=== PATIENT | female | born 1940 | race Caucasian/White ===

== ENCOUNTER 2023-03-15 12:21 | Emergency (ER) | payer MEDICARE, BC, SELFPAY ==
--- NOTE | 2023-03-15 12:30 | ED.FEMALEGU ---
HPI - Female Genitourinary General Chief complaint: Urogenital-Female Stated complaint: uti symptoms Time Seen by Provider: 03/15/23 12:28 Source: patient Mode of arrival: ambulatory Limitations: no limitations History of Present Illness HPI Narrative: Andreina is an 82-year-old female patient presenting to the clinic today with complaints of urinary symptoms. She reports she has had urinary frequency and fatigue over the last day or so. Denies any fever or chills. Denies any flank pain or lower abdominal pain. Denies any vaginal discharge Related Data Home Medications Medication Instructions Recorded Confirmed benazepril 40 mg tablet 40 mg PO DAILY 03/11/22 03/15/23 cholecalciferol (vitamin D3) 25 25 mcg PO DAILY 03/11/22 03/15/23 mcg (1,000 unit) capsule flaxseed oil 1,000 mg capsule 1,000 mg PO DAILY 03/11/22 03/15/23 rosuvastatin 20 mg tablet 20 mg PO DAILY 03/11/22 03/15/23 albuterol sulfate 90 mcg/actuation 1 puff inhalation Q4H PRN 10/21/22 03/15/23 aerosol inhaler (Ventolin HFA) Shortness Of Breath Or Wheezing cxsjdxjobnt-vei-umcllptne-vitC 2 cap PO BID 10/21/22 03/15/23 capsule (Glucosamine Complex-MSM capsule) Allergies Allergy/AdvReac Type Severity Reaction Status Date / Time azithromycin [From Zithromax] AdvReac Mild GI upset Verified 03/15/23 12:44 cephalexin [From Keflex] AdvReac Mild yeast Verified 03/15/23 12:44 lorazepam AdvReac Mild visual Uncoded 03/15/23 12:44 disturbance Review of Systems Review of Systems: Pertinent positives per HPI. Patient denies any fever, chills, rash, headache, visual changes, dizziness, cough, runny nose, sore throat, shortness of breath, chest pain, palpitations, nausea, vomiting, diarrhea, constipation, abdominal pain. [facility] Past Medical History Medical History Anxiety COPD (chronic obstructive pulmonary disease) Follows Dr Sheriff, pulmonology JESI on CPAP Osteoporosis Surgical History Surgical History History of bunionectomy of both great toes 1994 2005 History of cataract surgery 2002, 2010 History of hammer toe correction L 2nd toe-2007 History of total hysterectomy with bilateral salpingo-oophorectomy (BSO) 2004 History of total left knee replacement 06/2017 Social History Social History Smoking status: Former smoker Tobacco type: cigarettes Second hand tobacco smoke exposure: No Smoking end date: 08/11/96 Alcohol intake: never Substance use: never Substance use type: does not use Lack of Transportation: No Lack of Food: Never True Current Housing: I Have Housing Concerned About Future Housing: No Difficulty Paying Gas/Electric Bills: No Difficulty Paying for Meds: No Currently Unemployed: No Education: High School Diploma/GED Difficulty w/ Childcare or Family Care: No Living arrangements: alone Occupation/Education: retired Gender identity (if verbalized by the patient): Female Sexual Orientation (if Verbalized by the Patient): Straight or Heterosexual Spiritual care concerns: No Comments At the time of my signature, I reviewed and agree with the nursing past medical, surgical, social, and family history. There is no relevant family history pertinent to the patient complaint. Exam Narrative: General: Well-developed, well nourished, in no apparent distress. Head: Normocephalic, atraumatic. Cardio: Regular rate and rhythm, s1 and s2 normal, no murmur appreciated. Resp: Clear to auscultation bilaterally, no rhonchi, rales, wheezing or rubs. Abdomen: Soft, pliable, bowel sounds present in all quadrants, non-tender to palpation, no organomegly, no CVAT tenderness. Course Course Emergency Course: Portions of this record may have been created with voice recognition software. Level of C
[2023-03-15 12:44] VITALS: BP 134/61; PULSE 52; RESP 18; TEMP 36.8; O2SAT 97
== END 2023-03-15 13:08 | disposition home or self-care (01) ==
PROVIDERS: Emergency Provider Nurse Practitioner Family; PCP Physician Assistant Medical
DX: N30.01 Acute cystitis with hematuria (principal); Z87.891 Personal history of nicotine dependence; J44.9 Chronic obstructive pulmonary disease, unspecified; G47.33 Obstructive sleep apnea (adult) (pediatric); M81.0 Age-related osteoporosis without current pathological fracture; Z90.710 Acquired absence of both cervix and uterus; Z96.652 Presence of left artificial knee joint
CPT/HCPCS: 81003; 87086; 87147; 87181; 87186; 99213; G0463

== ENCOUNTER 2023-04-07 09:32 | Outpatient (CLI) | payer MEDICARE, BC, SELFPAY ==
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
== END 2023-04-07 09:33 | disposition home or self-care (01) ==
PROVIDERS: PCP Physician Assistant Medical; Visit Provider Internal Medicine Gastroenterology
DX: R10.9 Unspecified abdominal pain (principal); R93.89 Abnormal findings on diagnostic imaging of other specified body structures
CPT/HCPCS: 74250

== ENCOUNTER 2023-12-08 10:09 | Outpatient (CLI) | payer MEDICARE, BC, SELFPAY ==
--- NOTE | 2023-12-08 14:39 | WPDSIXMINUTE ---
Six Minute Walk Procedure Procedure Performed Pulmonary Stress Test (6 min walk) Six Minute Walk Six Minute Walk: This is a 6 minute walk test. The test was performed and interpreted in accordance with the 2014 ERS/ATS task force guidelines. Findings: The patient's resting room air oxygen saturation measured by pulse oximetry was 95% and heart rate was 57 bpm. Patient ambulated for 305 meters and oxygen saturation remained 90 to 94%. Heart rate at the end of the study was 87 bpm. The patient did not qualify for supplemental oxygen at rest or with ambulation. There are no prior studies for comparison.
--- NOTE | 2023-12-08 14:40 | WPDPFTINT ---
PFT Procedure Performed PFT Procedure Performed Spirometry with Pre/Post Bronchodilator Plethysmography (Lung Vol) Diffusing Cap (DLCO) Flow Vol Loop PFT Interpretation This is a pulmonary function test with pre and post-bronchodilator spirometry, plethysmography and diffusing capacity. The test was performed and results interpreted in accordance with the 2019 and 2005 ATS/ERS Task Force guidelines respectively using the Global Lung Function Initiative-2012 reference equations. Patient demonstrated good effort and cooperation. Reproducibility criteria were met. The quality of the pre bronchodilator spirometry maneuver was Grade A and post bronchodilator spirometry maneuver was Grade A. Findings: Spirometry: There is decreased maximal expiratory airflow at all lung volumes with concave expiratory flow tracing. The contour the inspiratory flow tracing is normal. The pre bronchodilator FVC is 2.16 L, 83% predicted. The pre bronchodilator FEV1 is 1.00 L, 51% predicted. The pre bronchodilator FEV1: FVC ratio is 46%. The post bronchodilator FVC is 2.53 L, representing a 17% increase. The post bronchodilator FEV1 is 1.19 L, representing a 19% increase. The post bronchodilator FEV1: FVC ratio is 47%. Plethysmography: The total lung capacity is 4.78 L, 92% predicted. The functional residual capacity is 3.25 L, 108% predicted. The residual volume is 2.44 L, 99% predicted. Diffusing capacity: The diffusing capacity unadjusted for hemoglobin and carboxyhemoglobin is 8.0, 41% predicted. The diffusing capacity adjusted for alveolar volume is 2.23, 55% predicted. Impression: There is a moderately severe obstructive abnormality. There is significant improvement after inhaling a single dose of albuterol. The lung volumes are normal. The diffusing capacity unadjusted for hemoglobin and carboxyhemoglobin is moderately decreased and remains moderately decreased when adjusted for alveolar volume. There are no prior studies for comparison
== END 2023-12-08 10:10 | disposition home or self-care (01) ==
PROVIDERS: PCP Physician Assistant Medical; Visit Provider Internal Medicine Critical Care Medicine
DX: R06.09 Other forms of dyspnea (principal); R94.2 Abnormal results of pulmonary function studies
CPT/HCPCS: 94060; 94618; 94726; 94729

== ENCOUNTER 2023-12-24 12:47 | Outpatient (CLI) | payer MEDICARE, BC, SELFPAY ==
--- NOTE | ~2023-12-24 | MR_ITS ---
EXAMINATION: MR hip LT wo con DATE: 12/24/2023 14:04 INDICATION: Left hip pain TECHNIQUE: Magnetic resonance imaging (MRI) of the left hip was performed without intravenous contra st. Sequences included full-field axial PD-weighted FS FSE and T1-weighted FSE, coronal of the pelvis with PD-weighted FS FSE, T2-weighted FSE and T1-weighted FSE, small field of view of the left hip wi th axial PD-weighted FS FSE, sagittal PD-weighted FS FSE, coronal PD-weighted FS FSE and coronal T2 weighted FSE. Additional radial T1-weighted FGR oriented orthogonal to the acetabular rim were obtain ed for evaluation of the labrum. COMPARISON: None FINDINGS: Bones/labrum/cartilage: Alignment is normal. No fracture, avascular necrosis or pathologic marrow replacing process. Mild to moderate osteoarthritis at the left hip with superomedial predominant nonuniform joint space narrowi ng with partial thickness cartilage loss appears to involve up to 50% the cartilage thickness. There is deep chondral fissuring with some subarticular edema-like signal change at the superolateral aspec t of the left acetabulum. There is diffuse amorphous increased signal of the left acetabular labrum w ith degenerative tearing. Lumbar spondylosis, severe at L5-S1 and moderate in the more cephalad lumba r spine. Fluid: Symmetric physiologic amount of fluid within both hip joints. No other abnormal fluid collections. Soft tissues: Normal and symmetric muscle bulk and signal in the pelvis and visualized proximal thighs. The iliopso as, gluteal and proximal hamstring tendons are normal. The uterus is not identified and has likely be en surgically resected. There is mild diverticulosis along the sigmoid colon without adjacent from tr anali stranding to suggest diverticulitis. Limited evaluation of visceral organs of the pelvis is other corona unremarkable. No pathologically enlarged pelvic/inguinal lymphadenopathy. IMPRESSION: 1. Mild to moderate left hip osteoarthritis with diffuse degenerative tearing of the left acetabular labrum. Reviewed, dictated and finalized at location A. IMPRESSION: 1. Mild to moderate left hip osteoarthritis with diffuse degenerative tearing o f the left acetabular labrum.
== END 2023-12-24 12:48 ==
LOC: GOSHIMG 12:49
PROVIDERS: PCP Physician Assistant Medical; Visit Provider Orthopaedic Surgery
DX: M16.12 Unilateral primary osteoarthritis, left hip (principal)
CPT/HCPCS: 73721

== ENCOUNTER 2024-09-26 12:14 | Emergency (ER) | payer MEDICARE, BC, SELFPAY ==
--- OUTSIDE RECORDS SUMMARY | 2024-09-26 12:18 | XMS_ITS | Encounter Summary ---
Author Organization [facility] Address [address] [place] [address] Care Team Providers Care Block Trader Name Role Phone Duke Brown MD Primary Care Provider [phone] Encounter Details Date Type Department Care Team (Late st Contact Info) Description 07/18/2006 Outpatient Historical [facility] Support Serv. (Adt Cardiology-[facility]) [address] 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
--- OUTSIDE RECORDS SUMMARY | 2024-09-26 12:18 | XMS_ITS | Referral Summary ---
Author Organization [facility] Address [address] [place] [address] Care Team Providers Care Prep Room Supervisor Name Role Phone [facility] - Primar y Care Provider Source Comments [facility],non-owned Affiliates and Associated Physician Practices is amultiple site organization consisting of ambulatory clinics and hospital sitesin [place], [place], [place] and [place]. This disclosure is being madepursuant to the Care Everywhere program and may not contain all information available regarding this patient. Last updated 18.[facility] Encounters Date Type Department Care Team Description 07/16/2024 Travel 07/16/2024 11:30 AM TESTS SUPERINTENDENT - 07/16/2024 11:59 PM TESTS SUPERINTENDENT Hospital Encounter [facility] [address] [place] [id number] [address] Pickard Discharge Disposition: Home or Self Care from Last 3 Months Social History Tobacco Use Types Packs/Day Years Used Date Smoking Tobacco: Never Assessed Sex and Gender Information Value Date Recorded Sex Assigned at Not on file Gender Identity Not on file Sexual Orientation Not on file Plan of Treatment Not on file Procedures Procedure Name Priority Date/Time Associated Diagnosis Comments MAMMO BILAT SCREENING W JULIET Routine 07/16/2024 11:43 AM TESTS SUPERINTENDENT Encounter for screening mammogram for malignant neoplasm of breast from Last 3 Months Results * Mammo Bilat Screening W Juliet (07/16/2024 11:43 AM TESTS SUPERINTENDENT) Anatomical Region Laterality Modality Breast Bilateral Mammography 07/16/2024 11:5 0 AM TESTS SUPERINTENDENT Impressions 07/16/2024 11:53 AM TESTS SUPERINTENDENT IMPRESSION: No mammographic evidence of malignancy. RECOMMENDATION: Screening mammography in one year, pending no interval breast concerns. Patient will receive the examination results by lay letter. OVERALL ASSESSMENT: BI-RADS CATEGORY 1: NEGATIVE. > Interpreting Provider: Yudi Post MD, FACR on 07/16/2024 11:53 AM Narrative 07/16/2024 11:53 AM TESTS SUPERINTENDENT EXAMINATIONS: BILATERAL DIGITAL SCREENING MAMMOGRAM AND BILATERAL BREAST TOMOSYNTHESIS LOCATION: [facility] EXAM DATE: 07/16/2024 HISTORY: Screening. No family history of breast cancer. RISK ASSESSMENT CALCULATION: Patient completed a breast cancer risk assessment during her appointment 07/16/2024. Based upon the information she provided and her mammographic breast density, her lifetime risk of developing breast cancer is 4 % (Average Risk <15%; Intermediate / Moderate Risk 15-19; High Risk > 20%). Risk assessment based upon the BRCAPRO model. COMPARISON: Comparison is made to prior mammograms back to 2014. TECHNIQUE: Tomosynthesis (3D) and reconstructed synthetic 2-D images acquired and reviewed in the bilateral craniocaudal and mediolateral oblique projections. A total of 4 images obtained. Mole marker placed on the left breast. Transpara AI was utilized in the interpretation. BREAST PARENCHYMAL COMPOSITION: Category A: The breasts are almost entirely fatty. FINDINGS: There are no suspicious findings or evidence of malignancy on mammography. There is no significant change from the prior. Provider Unknown MAMMO ORDERABLES from Last 3 Months Care Teams Prep Room Supervisor Relationship Specialty Start Date End Date [facility] [address] [place] [address] PCP - General 07/16/24
--- OUTSIDE RECORDS SUMMARY | 2024-09-26 12:18 | XMS_ITS | Encounter Summary ---
Author Organization [facility] Address [address] [place] [address] Care Team Providers Care Supervisor Fruit Grading Name Role Phone ShamarDuke curran Primary Care Provider [facility] - Primar y Care Provider Encounter Details Date Type Department Care Team (Late st Contact Info) Description 05/20/2023 Lab Requisition [facility] - DermPath Lab [address] [place] [address] Corbin Delgado MD [address] [address] Social History Tobacco Use Types Packs/Day Years Used Date Smoking Tobacco: Never Assessed Sex and Gender Information Value Date Recorded Sex Assigned at Not on file Gender Identity Not on file Sexual Orientation Not on file documented as of this encounter Plan of Treatment Not on file documented as of this encounter Procedures Procedure Name Priority Date/Time Associated Diagnosis Comments DERMATOPATHOLOGY Routine 05/19/2023 12:0 0 AM CDT documented in this encounter Results * DERMATOPATHOLOGY (05/19/2023 12:00 AM CDT) Case Report Dermatopathology Report Case: [id number] Authorizing Provider: Corbin Delgado MD Collected: 05/19/2023 12:00 AM Ordering Location: [facility] DermPath Lab Received: 05/20/2023 08:38 AM Pathologist: Janice Sheets MD Specimen: Skin, right lower leg 5:03 PM CDT DERMATOPATHOLOGY LABORATORY Final Diagnosis Specimen A. SKIN, right lower leg: VERRUCA VULGARIS, SUPERFICIAL PORTIONS OF (B07.8) 5:03 PM T DERMATOPATHOLOGY LABORATORY Clinical History SCCA vs ISK Path# [id number] 5:03 PM CDT DERMATOPATHOLOGY LABORATORY Gross Description Specimen A: Received is one formalin filled container labeled with the patient's name and designated right lower leg. The specimen consists of a shave biopsy measuring 11x9x3 mm. Jar 0. 5:03 PM T DERMATOPATHOLOGY LABORATORY Microscopic Description Specimen A. SKIN, right lower leg: Sections show papillomatosis and hypergranulosis with overlying focal parakeratosis. The base of the lesion is not visualized. 5:03 PM T DERMATOPATHOLOGY LABORATORY Disclaimer An external and internal positive and negative controls are appropriate for the histochemical, immunohistochemical and immunofluorescence stain(s) in this case (if any), except where stated explicitly. The performance characteristics of the stain(s) cited in this report were developed and its performance characteristic determined by the Dermatopathology Laboratory at [facility], directed by Dr. Starla Sheets. These tests need not be, and therefore are not, approved by the [place] Food and Drug Administration. The tests are used for clinical purposes. Billing Codes Specimen Charges Stain Charges 81830 1 5:03 PM CDT DERMATOPATHOLOGY LABORATORY Embedded Images 5:03 PM CDT DERMATOPATHOLOGY LABORATORY Pathology/Cytolog y TISSUE SPECIMEN FROM SKIN / Unknown 05/19/2023 05/20/2023 8:38 AM CDT Corbin Delgado MD LAB - PATHOLOGY/CYTO LOGY ORDERABLES DERMATOPATHOLOGY LABORATORY [facility] - Department of Dermatology [address] [phone] documented in this encounter Visit Diagnoses Not on filedocumented in this encounter Care Teams Supervisor Fruit Grading Relationship Specialty Start Date End Date Duke Pickard Update Information PCP - General 12/10/17 07/15/24 [facility] [place] [address] [place] [address] PCP - General 07/16/24 documented as of this encounter
--- OUTSIDE RECORDS SUMMARY | 2024-09-26 12:18 | XMS_ITS | Encounter Summary ---
Author Organization [facility] Address [facility] [place] [address] Care Team Providers Care Steam Trap Worker Name Role Phone Sarah Lozano PA-C Primary Care Provider [phone] Reason for Referral * Surgical (Routine) - Closed Specialty Diagnoses / Procedures Referred By Angelica carter Referred To Contact Procedures Case request operating room: INJECTION EPIDURAL LUMBAR INTERLAMINAR L4-5 Marie Booth APNP Phone: tel: fax: Referral ID Status Reason Start Date Expiration Date Visits Re quested Visits Authorized [id number] Closed 05/15/2022 05/15/2023 1 1 Encounter Details Date Type Department Care Team (Late st Contact Info) Description 05/15/2022 Prep for Procedure [facility] [place] [address] [phone] Marie Booth APNP [address] [place] [phone] Social History Tobacco Use Types Packs/Day Years Used Date Smoking Tobacco: Former Cigarettes 1 30 1 09/20/1968 - 07/20/1999 Smokeless Tobacco: Never Alcohol Use Standard Drinks/Week Comments No 0 (1 standard drink = 0.6 oz pur e alcohol) AUDIT-C Answer Date Recorded Frequency of Alcohol Consumption Never 07/20/2019 Average Number of Drinks Not on file 019 Frequency of Binge Drinking Not on file 07/11 PHQ-2 Answer Date Recorded PHQ-2 Score - If the patient scores above 3, please move on to questions 3-9 0 03/19/2021 Comments No Sex and Gender Information Value Date Recorded Sex Assigned at Female 10/11/2019 10:42 AM INSTRUCTOR BALLROOM DANCING Legal Sex Female 8:12 PM CDT Gender Identity Female 10/11/2019 10:42 AM INSTRUCTOR BALLROOM DANCING Sexual Orientation Straight 10/11/2019 10 :42 AM INSTRUCTOR BALLROOM DANCING 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 No / Unsure 05/15/2022 1:42 PM CDT documented as of this encounter Plan of Treatment Upcoming Encounters Date Type Department Care Team (Late st Contact Info) Description 12/20/2024 10:00 AM CDT Appointment [facility] [address] [place], [place] [phone] Sarah Lozano PA-C [address] [place] [phone] Scheduled Orders Name Type Priority Associated Diagnoses Orde r Schedule Case request operating room: INJECTION EPIDURAL LUMBAR INTERLAMINAR L4-5 Case Request Routine Once for 1 Occurrences starting 05/15/2022 until 05/15/2022 documented as of this encounter Visit Diagnoses Not on filedocumented in this encounter Additional Health Concerns Assessment Noted Time PHQ-9 Depression Total Score: 0 03/19/20 21 3:46 PM CDT documented as of this encounter Care Teams Steam Trap Worker Relationship Specialty Start Date End Date Sarah Lozano PA-C [address] [place] [address] [address] [place] [phone] PCP - General PHYSICIAN OLDER WORKER SPECIALIST 03/25/22 documented as of this encounter
--- OUTSIDE RECORDS SUMMARY | 2024-09-26 12:18 | XMS_ITS | Encounter Summary ---
Author Organization [facility] Address [address] [place] [address] Care Team Providers Care Coat Tailor Name Role Phone Sarah Lozano PA-C Primary Care Provider [phone] Reason for Referral * Imaging (Routine) - Closed Specialty Diagnoses / Procedures Referred By Contcheryl t Referred To Contact RADIOLOGY Diagnoses Spinal stenosis of lumbar region with neurogenic claudication Procedures MRI LUMB SPINE WO CON Blake Antonio MD [facility] [address] [place] [address] Phone: tel: fax: Referral ID Status Reason Start Date Expiration Date Visits Re quested Visits Authorized [id number] Closed 04/16/2024 05/17/2025 1 1 Encounter Details Date Type Department Care Team (Late st Contact Info) Description 04/16/2024 Telephone [facility] [place] [address] [id number] Blake Antonio MD [facility] [address] [place] [id number] Social History Tobacco Use Types Packs/Day Years Used Date Smoking Tobacco: Former Cigarettes 1 30 1 09/20/1968 - 07/20/1999 Smokeless Tobacco: Never Alcohol Use Standard Drinks/Week Comments No 0 (1 standard drink = 0.6 oz pur e alcohol) Humiliation, Afraid, Rape, and Kick questionnair e Answer Date Recorded Within the last year, have y ou been afraid of your partner or ex-partner? No 12/30/2022 Within the last year, have y ou been humiliated or emotionally abused in other ways by your partner or ex-partner? No Within the last year, have y ou been kicked, hit, slapped, or otherwise physically hurt by your partner or ex-partner? No 12/30/2022 Within the last year, have y ou been raped or forced to have any kind of sexual activity by your partner or ex-partner? No 12/30/2022 AUDIT-C Answer Date Recorded Frequency of Alcohol Consumption Never 07/20/2019 Average Number of Drinks Not on file 019 Frequency of Binge Drinking Not on file 07/11 Overall Financial Resource Strain (CARDIA) Answe r Date Recorded How hard is it for you to pa y for the very basics like food, housing, medical care, and heating? Not hard at all 12/30/2022 PHQ-2 Answer Date Recorded Patient Health Questionnaire-2 Score 0 11/14/2023 Hunger Vital Sign Answer Date Recorded Within the past 12 months, y ou worried that your food would run out before you got the money to buy more. Never true 12/31/19 23 Within the past 12 months, t he food you bought just didn't last and you didn't have money to get more. Never true 12/30/2022 PRAPARE - Transportation Answer Date Re corded In the past 12 months, has l ack of transportation kept you from medical appointments or from getting medications? No 12/10 In the past 12 months, has l ack of transportation kept you from meetings, work, or from getting things needed for daily living? No 12/30/2022 Housing Stability Vital Sign Answer Fede e Recorded In the last 12 months, was t here a time when you were not able to pay the mortgage or rent on time? No 12/30/2022 In the last 12 months, how many places have you lived? 1 12/30/2022 In the last 12 months, was t here a time when you did not have a steady place to sleep or slept in a care home (including now)? 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 Answer Date of Assessment Author Status No 12/30/2022 7:14 PM CDT Jane Son, RN Active * Do you have serious difficulty walking or climbing stairs? Answer Date of Assessment Author Status No 12/30/2022 7:14 PM CDT Jane Son, RN Active * Do you have difficulty dressing or bathing? Answer Date of Assessment Author Status No 12/30/2022 7:14 PM CDT Jane Son, RN Active * Because of a physical, mental, or emotional condition, do you have difficulty doing errands alone such as visiting a doctor's office or shopping? Answer Date of Assessment Author Status No 12/30/2022 7:14 PM COCOT Jane Son, RN Active documented as of this encounter Mental Status * Because of a physical, mental, or emotional condition, do you have serious difficulty concentrating, remembering, or making decisions? Answer Entry Date Author Status No 12/30/2022 7:14 PM CDT Jane Son, RN Active documented in this encounter Plan of Treatment Upcoming Encounters Date Type Department Care Team (Late st Contact Info) Description 12/20/2024 10:00 AM CDT Appointment [facility] [address] [place] [address] Sarah Lozano PA-C [address] [place] [address] [address] [place] [address] documented as of this encounter Results * MRI LUMB SPINE WO CON (05/04/2024 8:31 AM CDT) Anatomical Region Laterality Modality Spine Magnetic Resonan ce 05/04/2024 10:2 5 AM CDT Impressions 05/04/2024 10:50 AM CDT IMPRESSION: Moderate to marked multilevel lumbar spondylosis greatest at L3-4 and L4-5, as described above. Ordered By: BLAKE ANTONIO Interpreted By: Grady Gallo MD, 05/04/2024 10:25 AM Narrative 05/04/2024 10:50 AM CDT [facility] [address] [place] [address] Examination: MRI LUMB SPINE WO CON, 05/04/2024 7:53 AM. Technique: Multiplanar multisequence magnetic resonance images of the lumbar spine were obtained without intravenous contrast. Clinical history: Spinal stenosis, lumbar region with neurogenic claudication Comparison: MRI lumbar spine 10/25/2020 Findings: There are 5 nonrib-bearing lumbar-type vertebral bodies. There is 0.7 cm of anterolisthesis of L4 on L5. There is 0.4 cm of retrolisthesis of L5 on S1. The lumbar vertebral bodies and facets are well aligned otherwise. There is intervertebral disc height loss at L4-5 and L5-S1 with endplate degenerative change at these levels. The conus medullaris terminates at L1-2, normal. There is a normal distribution of the cauda equina within the thecal sac. No abnormal prevertebral or paraspinal soft tissue swelling. L1-2: Disc bulge impressing the ventral thecal sac. Mild to moderate spinal canal stenosis. Moderate facet hypertrophy. Mild bilateral neural foraminal stenosis. L2-3: Disc bulge impressing the ventral thecal sac. Mild to moderate spinal canal stenosis. Moderate facet hypertrophy. Small bilateral facet joint effusions. Mild bilateral neural foraminal stenosis. L3-4: Disc bulge impressing the ventral thecal sac. Severe spinal canal stenosis. Moderate to marked facet hypertrophy. Small to medium bilateral facet joint effusions. Moderate right neural foraminal stenosis. Small to medium left neural foraminal stenosis L4-5: Disc bulge impressing the ventral thecal sac. Severe spinal canal stenosis. Marked facet hypertrophy. Moderate bilateral neural foraminal stenosis. L5-S1: Disc bulge impressing the ventral thecal sac. Moderate spinal canal stenosis. Moderate to marked facet hypertrophy. Moderate to severe bilateral neural foraminal stenosis. Procedure Note Grady Gallo MD - 05/04/2024 [facility] [address] [place] [address] Examination: MRI LUMB SPINE WO CON, 05/04/2024 7:53 AM. Technique: Multiplanar multisequence magnetic resonance images of thelumbar spine were obtained without intravenous contrast. Clinical history: Spinal stenosis, lumbar region with neurogenicclaudication Comparison: MRI lumbar spine 10/25/2020 Findings: There are 5 nonrib-bearing lumbar-type vertebral bodies. There is 0.7 cmof anterolisthesis of L4 on L5. There is 0.4 cm of retrolisthesis of L5 onS1. The lumbar vertebral bodies and facets are well aligned otherwise.There is intervertebral disc height loss at L4-5 and L5-S1 with endplatedegenerative change at these levels. The conus medullaris terminates atL1-2, normal. There is a normal distribution of the cauda equina withinthe thecal sac. No abnormal prevertebral or paraspinal soft tissueswelling. L1-2: Disc bulge impressing the ventral thecal sac. Mild to moderatespinal canal stenosis. Moderate facet hypertrophy. Mild bilateral neuralforaminal stenosis. L2-3: Disc bulge impressing the ventral thecal sac. Mild to moderatespinal canal stenosis. Moderate facet hypertrophy. Small bilateral facetjoint effusions. Mild bilateral neural foraminal stenosis. L3-4: Disc bulge impressing the ventral thecal sac. Severe spinal canalstenosis. Moderate to marked facet hypertrophy. Small to medium bilateralfacet joint effusions. Moderate right neural foraminal stenosis. Small tomedium left neural foraminal stenosis L4-5: Disc bulge impressing the ventral thecal sac. Severe spinal canalstenosis. Marked facet hypertrophy. Moderate bilateral neural foraminalstenosis. L5-S1: Disc bulge impressing the ventral thecal sac. Moderate spinal canalstenosis. Moderate to marked facet hypertrophy. Moderate to severebilateral neural foraminal stenosis. IMPRESSION: Moderate to marked multilevel lumbar spondylosis greatest at L3-4 andL4-5, as described above. Ordered By: BLAKE ANTONIO Interpreted By: Grady Gallo MD, 05/04/2024 10:25 AM Blake Antonio MD MRI Final Result documented in this encounter Visit Diagnoses Diagnosis Spinal stenosis of lumbar region with neurogenic claudication- Primary Spinal stenosis, lumbar region, with neurogenic claudication Spinal stenosis of lumbar region with neurogenic claudication Spinal stenosis, lumbar region, with neurogenic claudication documented in this encounter Additional Health Concerns Assessment Noted Time PHQ-9 Depression Total Score: 0 03/19/20 21 3:46 PM CDT documented as of this encounter Care Teams Coat Tailor Relationship Specialty Start Date End Date Sarah Lozano PA-C [address] [place], [place] [id number] [place] [address] PCP - General PHYSICIAN DIRECT SUPPORT PROFESSIONAL 03/25/22 documented as of this encounter
--- OUTSIDE RECORDS SUMMARY | 2024-09-26 12:18 | XMS_ITS | Clinical Summary ---
Author Organization [facility] Address [address] [facility] [place] [address] Care Team Providers Care Tower Erector Name Role Phone [facility] Care Provider Source Comments [facility],non-owned Affiliates and Associated Physician Practices is amultiple site organization consisting of ambulatory clinics and hospital sitesin [place], [place], [place] and [place]. This disclosure is being madepursuant to the Care Everywhere program and may not contain all information available regarding this patient. Last updated 18.[facility] Encounters Date Type Department Care Team Description 07/16/2024 11:30 AM CUT ROLL MACHINE OFFBEARER - 07/16/2024 11:59 PM CUT ROLL MACHINE OFFBEARER Hospital Encounter [facility] [address] [place], [place] [id number] Duke Pickard Discharge Disposition: Home or Self Care 07/16/2024 Travel from Last 3 Months Social History Tobacco Use Types Packs/Day Years Used Date Smoking Tobacco: Never Assessed Sex and Gender Information Value Date Recorded Sex Assigned at Not on file Gender Identity Not on file Sexual Orientation Not on file Plan of Treatment Health Maintenance Due Date Last Done Comments MEDICARE AWV 12 MONTHS 1942 DTAP/TDAP/TD VACCINES (1 - Tdap) 1961 PNEUMOCOCCAL VACCINE 50+ (1 of 1 - PCV) 1992 ZOSTER VACCINE (1 of 2) 1992 Respiratory Syncytial Virus (RSV) Vaccine Pt: or over 60 yrs (1 - 1-dose 75+ series) 2017 COVID-19 VACCINE (2 - 2023-2 5 season) 2024 01/18/2022 INFLUENZA VACCINE (#1) 2024 DEPRESSION SCREENING 08/11/2024 BONE DENSITY TESTING Completed 12/09/2022, 12/22/2020 HEPATITIS B VACCINE Aged Out No longe r eligible based on patient's age to complete this topic HIB VACCINE Aged Out No longer eligi ble based on patient's age to complete this topic HPV VACCINE Aged Out No longer eligi ble based on patient's age to complete this topic MENINGOCOCCAL (Group B) VACCINE Aged Out No longer eligible b ased on patient's age to complete this topic MENINGOCOCCAL VACCINE Aged Out No zoe lesia eligible based on patient's age to complete this topic Procedures Procedure Name Priority Date/Time Associated Diagnosis Comments MAMMO BILAT SCREENING W JULIET Routine 07/16/2024 11:43 AM CUT ROLL MACHINE OFFBEARER Encounter for screening mammogram for malignant neoplasm of breast from Last 3 Months Results * Mammo Bilat Screening W Juliet (07/16/2024 11:43 AM CUT ROLL MACHINE OFFBEARER) Anatomical Region Laterality Modality Breast Bilateral Mammography 07/16/2024 11:5 0 AM CUT ROLL MACHINE OFFBEARER Impressions 07/16/2024 11:53 AM CUT ROLL MACHINE OFFBEARER IMPRESSION: No mammographic evidence of malignancy. RECOMMENDATION: Screening mammography in one year, pending no interval breast concerns. Patient will receive the examination results by lay letter. OVERALL ASSESSMENT: BI-RADS CATEGORY 1: NEGATIVE. > Interpreting Provider: Yudi Post MD, FACR on 07/16/2024 11:53 AM Narrative 07/16/2024 11:53 AM CUT ROLL MACHINE OFFBEARER EXAMINATIONS: BILATERAL DIGITAL SCREENING MAMMOGRAM AND BILATERAL BREAST TOMOSYNTHESIS LOCATION: [facility] EXAM DATE: 07/16/2024 HISTORY: Screening. No family [...] ORDERABLES from Last 3 Months Care Teams Tower Erector Relationship Specialty Start Date End Date [facility] [address] [place] [address] PCP - General 07/16/24
--- OUTSIDE RECORDS SUMMARY | 2024-09-26 12:18 | XMS_ITS | Encounter Summary ---
Author Organization [facility] Address [address] [place] [address] Care Team Providers Care Sales Record Clerk Name Role Phone Duke Brown MD Primary Care Provider [phone] Encounter Details Date Type Department Care Team (Late st Contact Info) Description 03/27/2007 Outpatient Historical [facility] MRI DEPT Monik Mann MD NO ADDRESS ON FILE Abnormal Weight Gain (Primary Dx) Social History Tobacco Use Types Packs/Day Years Used Date Smoking Tobacco: Never Assessed Comments Unknown Sex and Gender Information Value Date Recorded Sex Assigned at Not on file Legal Sex Female 5:02 AM REHABILITATION COUNSELLOR Gender Identity Not on file Sexual Orientation Not on file documented as of this encounter Plan of Treatment Not on file documented as of this encounter Procedures Procedure Name Priority Date/Time Associated Diagnosis Comments POC CREATININE Routine 03/27/2007 9:26 AM CDT documented in this encounter Results * POC CREATININE (03/27/2007 9:26 AM CDT) CREATININE POC 0.7 0.6 - 1.3 mg/dL INTERFACE SYSTEM 03/27/2007 9:26 AM CDT us Monik Mann MD POINT OF CARE TESTING Edited INTERFACE SYSTEM Refer to clinic/hospital department documented in this encounter Visit Diagnoses Diagnosis Abnormal weight gain- Primary documented in this encounter Care Teams Sales Record Clerk Relationship Specialty Start Date End Date Duke Brown MD [address] [facility] [address] [place] [address] PCP - General 07/30/06 documented as of this encounter
--- OUTSIDE RECORDS SUMMARY | 2024-09-26 12:18 | XMS_ITS | Clinical Summary ---
Author Organization [facility] Address [address] [place] [address] Phone Care Team Providers Care Manager Transport Name Role Phone Duke Brown MD Primary Care Provider [phone] Allergies No known active allergies Medications glucosamine-cho ndroitin (ARTHX DS) 500-400 mg Capsule Take 1 Capsule by mouth. Active benazepriL (LOTENSIN) 20 mg tablet Take 40 mg by mouth daily. Active celecoxib (CeleBREX) 200 mg capsule Take 200 mg by mouth daily. Active [id number]-[id number] -fish oil 1,000 mg Capsule Take by mouth daily. Active flaxseed oil-omega 3,6,9 1,300 mg-845 mg -117 mg-117 mg Capsule Take by mouth. Active hydroCHLOROthia zide (HYDRODIURIL) 12.5 mg tablet Take 12.5 mg by mouth daily. Active METOPROLOL SUCCINATE ORAL Take 50 mg by mouth daily. Active cholecalciferol , vitamin D3, (VITAMIN D3 ORAL) Take 100 mcg by mouth daily. Active rosuvastatin (CRESTOR) 20 mg tablet Take 20 mg by mouth daily. Active traMADoL (ULTRAM) 50 mg tablet Take by mouth. 10/27/2020 Active Active Problems No known active problems Family History Medical History Relation Name Comments Stroke Maternal Grandmother Relation Name Status Comments Maternal Grandmother Social History Tobacco Use Types Packs/Day Years Used Date Smoking Tobacco: Former Cigarettes Q uit: 1995 Smokeless Tobacco: Never Alcohol Use Standard Drinks/Week Comments Never 0 (1 standard drink = 0.6 oz pur e alcohol) Comments No Sex and Gender Information Value Date Recorded Sex Assigned at Not on file Legal Sex Female 5:02 AM SPORTS THERAPIST Gender Identity Not on file Sexual Orientation Not on file Last Filed Vital Signs Vital Sign Reading Time Taken Comments Blood Pressure 162/67 03/10/2023 11:10 AM CDT Pulse 53 03/10/2023 11:10 AM CDT Temperature 37 C (98.6 F) 03/10/2023 11:10 AM CDT Respiratory Rate 18 03/10/2023 11:10 AM CDT Oxygen Saturation 93% 01/28/2023 8:48 AM CDT Inhaled Oxygen Concentration - - Weight 77.6 kg (171 lb) 01/28/2023 8:48 AM CDT Height 162.6 cm (5' 4 ) 01/28/2023 8:48 AM CDT Body Mass Index 29.35 01/28/2023 8:48 AM CDT Plan of Treatment Health Maintenance Due Date Last Done Comments PNEUMOCOCCAL VACCINE 65+ YEA RS (1 of 2 - PCV) 1961 RSV VACCINE (60+ or ) (1 - 1-dose 75+ series) 2017 INFLUENZA VACCINE (#1) 2024 05/14/2022 COVID-19 Vaccine (2 - 2023-2 5 season) 2024 01/18/2022 DTAP/TDAP/TD VACCINES (2 - T d or Tdap) 01/23/2027 01/23/2017 ZOSTER VACCINE Completed 08/20/2019, 06/21/2019 OSTEOPOROSIS SCREENING Completed 3, 12/22/2020, 12/22/2020, Additional history exists Procedures Procedure Name Priority Date/Time Associated Diagnosis Comments XR DEXA BONE DENSITY AXIAL 1 OR MORE SITES Routine 12/09/2022 10:38 AM CDT Age-related osteoporosis without current pathological fracture from Last 3 Months or Most Recently Relevant to Health Maintenance Results * (ABNORMAL) XR DEXA BONE DENSITY AXIAL 1 OR MORE SITES (12/09/2022 10:38 AM CDT) T-SCORE SPINE -1.50(A) -1.0 - 1.0 INTER FACE SYSTEM T-SCORE FEMUR NECK -1.90(A) -1.0 - 1.0 INTERFACE SYSTEM Anatomical Region Laterality Modality Computed Radiogr aphy 12/09/2022 10:3 9 AM CDT Impressions 12/09/2022 11:11 AM CDT FINDINGS/IMPRESSION: Osteopenia with a lowest T score of -1.9. Fracture risk is moderate. FRAX: 10 year probability of major osteoporotic fracture is 15.0 %. 10 year probability of hip fracture is 4.1 %. Please refer to the full report available in [facility] under the PACS Images tab. If a faxed copy is needed, please call [phone]. DICTATION LOCATION: [facility] Narrative 12/09/2022 11:11 AM CDT SUMMARY DEXA REPORT DATE: 12/09/2022 10:38 AM INDICATION: Postmenopausal Procedure Note David Carter MD - 12/09/2022 SUMMARY DEXA REPORT DATE: 12/09/2022 10:38 AM INDICATION: Postmenopausal FINDINGS/IMPRESSION: Osteopenia with a lowest T score of -1.9. Fracture risk is moderate. FRAX: 10 year probability of major osteoporotic fracture is 15.0 %. 10 year probability of hip fracture is 4.1 %. Please refer to the full report available in [facility] under the PACS Images tab. If a faxed copy is needed, please call [phone]. DICTATION LOCATION: [facility] Indra Narvaez MD DIAGNOSTIC IMAGING ORDERABLES Final Result from Last 3 Months or Most Recently Relevant to Health Maintenance Insurance MEDICARE PART A AND B [facility] FED[employer] Care Teams Manager Transport Relationship Specialty Start Date End Date Duke Brown MD [address] [place] [phone] PCP - General 07/30/06
--- OUTSIDE RECORDS SUMMARY | 2024-09-26 12:18 | XMS_ITS | Clinical Summary ---
Author Organization [facility] Address [address] [place] [address] Care Team Providers Care Protection Agent Name Role Phone Sarah Lozano PA-C Primary Care Provider [phone] Allergies No known active allergies Medications metoprolol succinate ER 50 MG 24 hr tablet Take 1 tablet (50 mg total) by mouth nightly at bedtime. Active vitamin D3, cholecalciferol , 1000 UNIT Tab tablet Take 2 tablets (2,000 Units total) by mouth daily. Active Glucosamine-Cho ppqmnk-UFK-Y-Mn Cap TAKE 1 CAPSULE BY MOUTH TWICE A DAY 05/01/2012 Active hydroCHLOROthia zide 12.5 MG tablet TK 1 T PO QAM 11/22/2019 Active fish oil (OMEGA-3 FATTY ACID) 1000 MG Cap capsule Take 1 capsule (1,000 mg total) by mouth daily. Active rosuvastatin (CRESTOR) 20 MG tablet Take 1 tablet (20 mg total) by mouth nightly at bedtime. 02/21/2022 Active traMADol (ULTRAM) 50 MG tablet Take 1 tablet (50 mg total) by mouth every 6 (six) hours as needed. 04/08/2023 Active diphenhydrAMINE (BENADRYL) 25 MG capsule Take 1 capsule (25 mg total) by mouth every 6 (six) hours as needed for Sleep. Active acetaminophen (TYLENOL) 500 MG tablet Take 625 mg by mouth. Active ANORO ELLIPTA 62.5-25 MCG/ACT inhaler Inhale 1 puff into the lungs once. 01/26/2024 Active benazepril (LOTENSIN) 5 MG tablet Take 1 tablet (5 mg total) by mouth daily. Active acetaminophen CR (TYLENOL 8 HOUR ARTHRITIS PAIN) 650 MG Tab CR 8 hr tablet Take 2 tablets (1,300 mg total) by mouth daily. 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 Lumbar radiculopathy 07/20/2019 Overview (07/20/2019): Added automatically from request for surgery [id number] Encounters Date Type Department Care Team Description 09/21/2024 10:15 AM RESIDENTIAL REMODELING SUBCONTRACTOR - 09/21/2024 11:59 PM RESIDENTIAL REMODELING SUBCONTRACTOR Hospital Encounter [facility] [address] [place] [address] Grady Saravia, Martha Pineda, MONAE Low Back Pain Discharge Disposition: Home or Self Care (Routine Discharge) 09/21/2024 Travel 09/15/2024 1:39 PM RESIDENTIAL REMODELING SUBCONTRACTOR - 09/15/2024 11:59 PM RESIDENTIAL REMODELING SUBCONTRACTOR Hospital Encounter [facility] [address] [place] [phone] Grady Saravia, Martha Pineda, MONAE Low Back Pain Discharge Disposition: Home or Self Care (Routine Discharge) 09/15/2024 Travel 09/13/2024 12:54 PM RESIDENTIAL REMODELING SUBCONTRACTOR - 09/13/2024 11:59 PM RESIDENTIAL REMODELING SUBCONTRACTOR Hospital Encounter [facility] [address] [place] [address] Grady Saravia, Martha Pineda, MONAE Lumbar Radiculopathy (/) Discharge Disposition: Home or Self Care (Routine Discharge) 09/13/2024 Travel 09/10/2024 10:20 AM RESIDENTIAL REMODELING SUBCONTRACTOR - 09/10/2024 11:59 PM RESIDENTIAL REMODELING SUBCONTRACTOR Hospital Encounter [facility] [address] [place] [phone] Grady Saravia, Martha Pineda, ECOSYSTEM ECOLOGY PROFESSOR Solitario, Shanita L, SUPERVISOR PICKING CREW Back Pain Discharge Disposition: Home or Self Care (Routine Discharge) 09/10/2024 Travel 09/08/2024 Travel 09/06/2024 10:09 AM RESIDENTIAL REMODELING SUBCONTRACTOR - 09/06/2024 11:59 PM RESIDENTIAL REMODELING SUBCONTRACTOR Hospital Encounter [facility] [address] [place] [address] Grady Saravia, PT Martha Pritchard, MONAE Low Back Pain Discharge Disposition: Home or Self Care (Routine Discharge) 09/06/2024 Travel 08/31/2024 9:24 AM RESIDENTIAL REMODELING SUBCONTRACTOR - 08/31/2024 11:59 PM RESIDENTIAL REMODELING SUBCONTRACTOR Hospital Encounter [facility] [address] [place] [phone] Grady Saravia, Martha Pineda, MONAE Lumbar Radiculopathy (/) Discharge Disposition: Home or Self Care (Routine Discharge) 08/31/2024 Travel 08/27/2024 9:42 AM RESIDENTIAL REMODELING SUBCONTRACTOR - 08/27/2024 11:59 PM RESIDENTIAL REMODELING SUBCONTRACTOR Hospital Encounter [facility] [address] [place] [phone] Grady Saravia, Martha Pineda, ECOSYSTEM ECOLOGY PROFESSOR Solitario, Shanita L, SUPERVISOR PICKING CREW Back Pain Discharge Disposition: Home or Self Care (Routine Discharge) 08/27/2024 Travel 08/23/2024 10:57 AM RESIDENTIAL REMODELING SUBCONTRACTOR - 08/23/2024 11:59 PM RESIDENTIAL REMODELING SUBCONTRACTOR Hospital Encounter [facility] [address] [place] [address] Grady Saravia, Martha Pineda, MONAE Low Back Pain Discharge Disposition: Home or Self Care (Routine Discharge) 08/23/2024 Travel 08/06/2024 8:52 AM RESIDENTIAL REMODELING SUBCONTRACTOR - 08/06/2024 11:59 PM RESIDENTIAL REMODELING SUBCONTRACTOR Hospital Encounter [facility] [address] [place] [phone] Grady Saravia, Martha Pineda, ECOSYSTEM ECOLOGY PROFESSOR Low Back Pain Discharge Disposition: Home or Self Care (Routine Discharge) 08/06/2024 Travel 08/03/2024 8:54 AM RESIDENTIAL REMODELING SUBCONTRACTOR - 08/03/2024 11:59 PM RESIDENTIAL REMODELING SUBCONTRACTOR Hospital Encounter [facility] [address] [place] [address] Martha Pritchard, ECOSYSTEM ECOLOGY PROFESSOR Shanita Jerez, SUPERVISOR PICKING CREW Back Pain Discharge Disposition: Home or Self Care (Routine Discharge) 08/03/2024 Travel 07/26/2024 8:57 AM RESIDENTIAL REMODELING SUBCONTRACTOR - 07/26/2024 11:59 PM RESIDENTIAL REMODELING SUBCONTRACTOR Hospital Encounter [facility] [address] [place] [phone] Grady Saravia, PT Martha Pritchard, ECOSYSTEM ECOLOGY PROFESSOR Low Back Pain Discharge Disposition: Home or Self Care (Routine Discharge) 07/26/2024 Travel 07/20/2024 3:49 PM RESIDENTIAL REMODELING SUBCONTRACTOR - 07/20/2024 11:59 PM RESIDENTIAL REMODELING SUBCONTRACTOR Hospital Encounter [facility] [address] [place] [phone] Grady Saravia, PT Martha Pritchard, MONAE Lumbar Radiculopathy (/) Discharge Disposition: Home or Self Care (Routine Discharge) 07/20/2024 Travel 07/19/2024 9:26 AM RESIDENTIAL REMODELING SUBCONTRACTOR - 07/19/2024 11:59 PM RESIDENTIAL REMODELING SUBCONTRACTOR Hospital Encounter [facility] [address] [place] [phone] Grady Saravia, PT Martha Pritchard, MONAE Lumbar Radiculopathy Discharge Disposition: Home or Self Care (Routine Discharge) 07/19/2024 Travel 07/16/2024 8:44 AM RESIDENTIAL REMODELING SUBCONTRACTOR - 07/16/2024 11:59 PM RESIDENTIAL REMODELING SUBCONTRACTOR Hospital Encounter [facility] [address] [place] [address] Martha Pritchard, ECOSYSTEM ECOLOGY PROFESSOR Laila Garrett, SUPERVISOR PICKING CREW Lumbar Radiculopathy Discharge Disposition: Home or Self Care (Routine Discharge) 07/16/2024 Travel 06/29/2024 9:59 AM RESIDENTIAL REMODELING SUBCONTRACTOR - 06/29/2024 11:59 PM RESIDENTIAL REMODELING SUBCONTRACTOR Hospital Encounter [facility] [address] [place] [address] Martha Pritchard, Grady Sellers, PT Lumbar Radiculopathy Discharge Disposition: Home or Self Care (Routine Discharge) 06/29/2024 Travel from Last 3 Months Immunizations Name Administration Dates Next Due Fluzone High Dose - >Age 65 (Prefilled Syringe) 05/14/2022 MODERNA COVID-19 (AIRCRAFT RIGGING AND CONTROLS MECHANIC TEOFILO IOANA), MRNA, LNP-S, PF, 50 MCG/ 0.25 ML DOSE 01/18/2022 Shingrix 08/20/2019,06/21/2019 Tdap (Boostrix) 01/23/2017 Family History Medical History Relation Comments Alcohol Abuse Father Hypertension Maternal Grandfather Relation Status Comments Brother Alive Father Maternal Grandfather Mother Social History Tobacco Use Types Packs/Day Years Used Date Smoking Tobacco: Former Cigarettes 1 30 1 09/20/1968 - 07/20/1999 Smokeless Tobacco: Never Tobacco Cessation:Counseling Given: Yes Alcohol Use Standard Drinks/Week Comments No 0 [...] place to sleep or slept in a residential (including now)? 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 Not on f ile Not on file Last Filed Vital Signs Vital Sign Reading Time Taken Comments Blood Pressure 165/64 06/04/2024 9:38 AM CDT Pulse 60 06/04/2024 9:38 AM CDT Temperature 36.1 C (96.9 F) 06/04/2024 8:42 AM CDT Respiratory Rate 18 06/04/2024 9:38 AM CDT Oxygen Saturation 95% 06/04/2024 9:38 AM CDT Inhaled Oxygen Concentration - - Weight 77.1 kg (170 lb) 06/04/2024 8:42 AM CDT Height 165.1 cm (5' 5 ) 06/04/2024 8:42 AM CDT Body Mass Index 28.29 06/04/2024 8:42 AM CDT Plan of Treatment Upcoming Encounters Date Type Department Care Team (Late st Contact Info) Description 12/20/2024 10:00 AM CDT Appointment [facility] [address] [place] [address] Sarah Lozano PA-C [address] [place] [address] Health Maintenance Due Date Last Done Comments Annual Medicare Wellness Visit 11/08/2007 Pneumococcal Vaccine: 65+ Years (1 of 1 - PCV) 11/08/2007 RSV Immunization or 60+ Years (1 - 1-dose 75+ series) 2017 COVID-19 Vaccine ( season) 2024 05/14/2022, 01/18/2022, 06/15/2021, Additional history exists Influenza Adult (#1) 2024 05/14/2022 PHQ-2 (Physician [place]) 08/11/2024 11/14/2023 DTaP, Tdap and Td Vaccines (2 - Td or Tdap) 01/23/2027 01/23/2017 Zoster Vaccines Completed 08/20/2019, 06/21/2019 Dexa Scan (General) Completed 12/09/2022, 12/09/2022, 12/22/2020, Additional history exists Meningococcal B Vaccine Aged Out No l onger eligible based on patient's age to complete this topic Meningococcal Vaccine Aged Out No zoe lesia eligible based on patient's age to complete this topic RSV Immunizations Under 20 Months Aged Out No longer eligible based on patient's age to complete this topic Procedures Procedure Name Priority Date/Time Associated Diagnosis Comments BONE DENSITY/DEXA Routine 12/22/2020 2:5 4 PM CDT Osteoporosis from Last 3 Months or Most Recently Relevant to Health Maintenance Results * BONE DENSITY/DEXA (12/22/2020 2:54 PM CDT) Anatomical Region Laterality Modality Bone Bone Density 12/22/2020 3:35 PM CDT Impressions 12/22/2020 3:37 PM CDT IMPRESSION: 1. Mild osteoporosis lumbar spine with interval increased bone density since 2012. 2. Mild osteopenia left femoral neck with interval increased bone density since 2012. Referred By: ALDAIR CASTRO Interpreted By: Tre Alexander, 12/22/2020 3:35 PM Narrative 12/22/2020 3:37 PM CDT IMAGING STUDIES: BONE DENSITY/DEXA DATE: 12/22/2020 2:44 PM HISTORY: Osteoporosis 80-year-old postmenopausal female with osteopenia. Follow-up. Comparison: Bone densitometry 05/20/2013. MRI lumbar spine 10/25/2020. DISCUSSION: BONE DENSITOMETRY LUMBAR SPINE L2-L4: Bone mineral density: 0.772 g/sq cm. T score: -2.8 Z score: -0.1 WHO classification: Mild osteoporosis. In 2012, bone mineral density at L2-L4 was 0.703 g/sq cm with T score -3.4. LEFT FEMORAL NECK: Bone mineral density: 0.705 g/sq cm. T score: 1.3 Z score: 0.9 WHO classification: Mild osteopenia. In 2012, left femoral neck bone mineral density was 0.653 g/sq cm with T score -1.8. Procedure Note Tre Alexander MD - 12/22/2020 IMAGING STUDIES: BONE DENSITY/DEXA DATE: 12/22/2020 2:44 PM HISTORY: Osteoporosis 80-year-old postmenopausal femalewith osteopenia. Follow-up. Comparison: Bone densitometry 05/20/2013. MRI lumbar spine 10/25/2020. DISCUSSION: BONE DENSITOMETRY LUMBAR SPINE L2-L4: Bone mineral density: 0.772 g/sq cm. T score: -2.8 Z score: -0.1 WHO classification: Mild osteoporosis. In 2012, bone mineral density at L2-L4 was 0.703 g/sq cm with T score-3.4. LEFT FEMORAL NECK: Bone mineral density: 0.705 g/sq cm. T score: 1.3 Z score: 0.9 WHO classification: Mild osteopenia. In 2012, left femoral neck bone mineral density was 0.653 g/sq cm with T score -1.8. IMPRESSION: 1. Mild osteoporosis lumbar spine with interval increased bone density since 2012. 2. Mild osteopenia left femoral neck with interval increased bonedensity since 2012. Referred By: ALDAIR CASTRO Interpreted By: Tre Alexander, 12/22/2020 3:35 PM Aldair Castro MD DEXA Final Result from Last 3 Months or Most Recently Relevant to Health Maintenance Insurance [facility] Advance Directives Documents on File Type Date Recorded Patient Tax Services Intern Expl anation Advance Directives and Living Will 10/27/2020 2:11 PM 07/30/2006 POA Advance Directives and Living Will 07/08/2017 12:00 AM POWER OF VISUAL INSPECTOR FO R HEALTH CARE Advance Directives and Living Will 07/08/2017 12:00 AM POWER OF VISUAL INSPECTOR FO R HEALTH CARE * Full Code (Latest Code Status on File) Date Activated Date Inactivated Comments 12/30/2022 7:27 PM 12/31/2022 7:56 PM Care Teams Protection Agent Relationship Specialty Start Date End Date Sarah Lozano PA-C [address] [place] [address] [address] [place] [address] PCP - General PHYSICIAN ECONOMICS CONSULTANT 03/25/22
--- OUTSIDE RECORDS SUMMARY | 2024-09-26 12:18 | XMS_ITS | Continuity of Care Document ---
Author Organization [facility] Address [address] [place] [address] Phone Care Team Providers Care Facility Engineer Name Role Phone Stone Martin MD Unavailable Unavailable Allergies, Adverse Reactions, Alerts Substance Reaction Status Criticality No Known Drug Allergies Active No I nformation Medications Medication Instructions Dosage Effective Dates (start - stop) Status Comments Celebrex 200 mg Cap TAKE 1 (200MG) BY OR AL ROUTE EVERY DAY NEEDED 200 MG - Active Procedures Procedure Date X-ray exam knee, 1 or 2 views 3 X-ray exam both knees, standing 013 Asp/inject major joint or bursa 013 Depo Medrol Methylprednisolone 40 MG inj Xray Copy Office/outpatient visit,new, [facility] [place] 2010 Drain/inject major jointor bursa 2010 Depo Medrol Methylprednisolone 40 MG inj X-ray exam of knee, 1 or2 views 011 X-ray exam of both knees, standing Advance Directives Directive Yes / No Effective Date File Name No Information Encounters Encounter Description Practice Location Reason(s) For Visit Diagnoses Date Provider Providers Copied on Encounter [facility], [address] [facility], [place], [place], [id number], [place] tel:[phone] [email or web address] No Information 3 Veronica Ritter. [address] [facility] [address] [facility] [facility] [address], [address], [place], [place], [id number], [place]. tel:[phone] [facility], [address] [place] [address], [place], [place], [id number], [place] tel:[phone] [facility] No Information 3 No Information [facility], [address] [place] [address], [id number], [place] tel:[phone] [facility] left knee pain (chief complaint) PAIN IN [place] PRIM OSTEOART-L/L EGSCIATICA 3 No Information [facility], [address] [place] [address], [place], [place], [id number], [place] tel:[phone] [facility] No Information 1 Administrative Provider. [address] [place] [address], [address], [place], [place], [id number], [place]. tel:[phone] Office/outpa tient visit,[facility], [address] [place] [address], [place], [place], [id number], [place] tel:[phone] [facility] JOINT PAIN-L/LEGLO C PRIM OSTEOART-L/L EG 1 No Information Family History Family Member Type Diagnosis Age At Onset No Information Immunizations Vaccine Date Status Comments pneumo (2 yrs or older) (PPV23) administe red Source: New Immunization Record Flu (split) (3 yrs or older) administered Source: New Immunization Record Payers Payer name Insurance type Covered constitution party ID Authoriza tion(s) [place] Part B [id number] Count Includes [facility] Cross Blue Shiel d [facility] [id number] Social History Type Description Quantity Date Captured Comments Sex Female Smoking Status No Information Chief Complaint And Reason For Visit No Information Reason For Referral Reason For Referral No Information Plan Of Treatment Date Type Action Status Referral Ordered: X-ray exam both knees, standing ordered Referral Ordered: X-ray exam knee, 1 or 2 views LT ordered History Of Present Illness Encounter Date Complaint History Of Prese nt Illness No Information Functional Status Date Functional Assessmen t No Information Instructions Date Instruction Additional Infor mation No Information Assessments Type Assessment Date No Information Patient Care Teams Name Effective Dates (start - stop) Status Members No Information
--- OUTSIDE RECORDS SUMMARY | 2024-09-26 12:18 | XMS_ITS | Encounter Summary ---
Author Organization [facility] Address [facility] [place] [address] Care Team Providers Care P D Driver Name Role Phone Duke Brown MD Primary Care Provider [phone] Sarah Lozano PA-C Primary Care Provider [phone] Encounter Details Date Type Department Care Team (Late st Contact Info) Description 05/11/2013 Abstract [facility] [address] [place] [address] , Generic ConversionMD Social History Tobacco Use Types Packs/Day Years Used Date Smoking Tobacco: Never Assessed Comments Unknown Sex and Gender Information Value Date Recorded Sex Assigned at Female 10/11/2019 10:42 AM CLOTH CUTTER Legal Sex Female 8:12 PM CDT Gender Identity Female 10/11/2019 10:42 AM CLOTH CUTTER Sexual Orientation Straight 10/11/2019 10 :42 AM CLOTH CUTTER documented as of this encounter Plan of Treatment Upcoming Encounters Date Type Department Care Team (Late Contact Info) Description 12/20/2024 10:00 AM CDT Appointment [facility] [address] [place] [address] Sarah Lozano PA-C [address] [place] [address] documented as of this encounter Visit Diagnoses Not on filedocumented in this encounter Care Teams P D Driver Relationship Specialty Start Date End Date Duke Brown MD [address] [place] [id number] PCP - General INTERNAL MEDICINE 03/16/19 03/24/22 Sarah Lozano PA-C [address] [place] [address] [address] [place] [address] PCP - General PHYSICIAN FILM LOADER 03/25/22 documented as of this encounter
--- OUTSIDE RECORDS SUMMARY | 2024-09-26 12:18 | XMS_ITS | Clinical Summary ---
Author Organization [facility] Address [address] [place] [address] Care Team Providers Care Collection Systems Technician Name Role Phone Sarah Lozano Primary Care Provider [phone] Allergies No known active allergies Medications cholecalciferol (cholecalciferol ) 1,000 unit tablet take 2 tabs by oral route once 0 0 5 Active glucosamine-msm- magnesium-vitC (GLUCOSAMINE COMPLEX-MSM) capsule TAKE 1 CAPSULE BY MOUTH TWICE A DAY 0 2 Active flaxseed oil 1,000 mg capsule take 1 by Oral route every day 0 5 Active Additional Information Patient taking differently: 400 mg, Reported on 07/26/2024 metoprolol XL (TOPROL-XL) 50 mg 24 hr tablet take 1 tablet by oral route every day 0 0 5 Active hydroCHLOROthiaz blair (HYDRODIURIL) 12.5 mg tablet TK 1 T PO QAM 0 Active traMADoL (ULTRAM) 50 mg tablet Take by mouth every 6 (six) hours as needed 1 Active benazepriL (LOTENSIN) 40 mg tabletIndication s:Essential hypertension TAKE 1 TABLET(40 MG) BY MOUTH DAILY 90 tablet 1 4 Active Anoro Ellipta 62.5-25 mcg/actuation blister with device Inhale 1 puff once 4 Active cyanocobalamin (Vitamin B-12) 1,000 mcg tabletIndication s:Prevention of Vitamin B12 Deficiency Take 1 tablet (1,000 mcg total) by mouth daily Active acetaminophen (TYLENOL) 650 mg suppository Insert 1 suppository (650 mg total) into the rectum every 4 (four) hours as needed for pain Active rosuvastatin (CRESTOR) 20 mg tabletIndication s:Hyperlipidemia LDL goal <100 TAKE 1 TABLET(20 MG) BY MOUTH DAILY 90 tablet 1 5 Active Active Problems Problem Noted Date Diagnosed Date Primary insomnia 07/23/2021 Assessment & Plan (10/22/2022 3:40 PM CDT): The insomnia is under good control with cognitive behavioral therapy. Assessment & Plan (09/23/2022 12:06 PM KITCHEN MANAGER): Patient will continue with cognitive behavior therapy. Assessment & Plan (07/22/2022 10:36 AM KITCHEN MANAGER): Patient will continue with cognitive behavior therapy. I did instruct the patient that naps may be interfering with her nighttime sleep habits. Assessment & Plan (07/23/2021 1:24 PM KITCHEN MANAGER): The patient does have difficulty initiating and maintaining sleep. I did recommend sleep restriction, cognitive behavioral therapy and good sleep hygiene. I did give her the 2 brochures that are published by the [place] [employer] regarding understanding insomnia and how to sleep better. Pre-operative clearance 12/08/2020 Essential hypertension 12/14/2019 Palpitations 12/14/2019 Centrilobular emphysema 12/14/2019 Assessment & Plan (03/24/2023 1:23 PM CDT): The patient continue to use her albuterol inhaler as needed up to 4 times a day for shortness of breath. Assessment & Plan (10/22/2022 3:39 PM CDT): The patient has a history of stage II COPD. The Anoro increased her blood pressure. She is currently using ProAir 2 puffs q.i.d. and I have refilled this for her. She is not enrolled in the pulmonary rehab program and [facility] at this time because she is still working. She will follow-up with me in 3 months. Assessment & Plan (09/23/2022 12:36 PM KITCHEN MANAGER): Due to the increase of shortness of breath. I did give the patient a sample of Anoro to try. The patient was instructed she can continue to use her albuterol inhaler as needed up to 4 times a day for shortness of breath. The patient will call back in if the Anoro does help with her breathing. The patient would like to participate in pulmonary rehab at [facility]. I will send an order over. Assessment & Plan (07/22/2022 10:36 AM KITCHEN MANAGER): Patient will continue with albuterol on a p.r.n. basis and up to 4 times a day as needed for symptom control. I have ordered a full PFT and 6 minute walk test Assessment & Plan (07/23/2021 1:24 PM KITCHEN MANAGER): The patient has a history of stage II COPD on PFTs were checked several years ago. She does have dyspnea on exertion and I have refilled her albuterol inhaler to use 2 puffs q.i.d. on a p.r.n. basis. Hyperlipidemia LDL goal <100 12/14/2019 JESI (obstructive sleep apnea) 09/08/2019 Assessment & Plan (03/24/2023 1:23 PM CDT): Patient continue to wear her CPAP at 12 cm water pressure while sleeping. Her DME is [facility]. Assessment & Plan (10/22/2022 3:40 PM CDT): The patient continues to benefit from CPAP at 12 cm water pressure. Her DME supplier is [employer]. Assessment & Plan (09/23/2022 12:05 PM KITCHEN MANAGER): Patient will continue CPAP therapy at 12 cm water pressure. Denied need for supplies. DME [facility] Assessment & Plan (07/22/2022 10:35 AM KITCHEN MANAGER): Patient will continue CPAP therapy at 12 cm water pressure. Denied need for supplies. DME [facility] Assessment & Plan (07/23/2021 1:22 PM KITCHEN MANAGER): The patient continues to benefit from the CPAP unit 12 cm water pressure. Her DME supplier is [facility]. She has registered for a new CPAP unit through [employer] She will follow-up with me in 1 year. Fatigue 11/18/2014 Overview (11/15/2016): Fatigue Resolved Problems Problem Noted Date Diagnosed Date Resolved Date Snoring 11/18/2014 07/22/2022 Overview (11/15/2016): Snores Encounters Date Type Department Care Team Description 07/26/2024 11:15 AM KITCHEN MANAGER Office Visit [facility] [address] [place] [address] Rolando Martinez MD Essential hypertension (Primary Dx); Hyperlipidemia LDL goal <100; Palpitations; JESI (obstructive sleep apnea); Centrilobular emphysema (HCC) from Last 3 Months Medical History Medical History Date Comments Hx Other Medical Arrhythmias Adiposity Obesity Hx Other Medical palpitations, d entures, high cholesterol, adult ac; Comments: MAF 11/18/2014 - Family History Medical History Relation Name Comments Other Mother old age; Cause of : old age Scoliosis Other 1 Family history of scoliosis - (Added by TW Conv) Arthritis Other 2 Family history of arthritis - (Added by TW Conv) Alcohol abuse Other 3 Family history of alcoholism - (Added by TW Conv) Kidney disease Other 4 Family histor y of kidney disease - (Added by TW Conv) Relation Name Status Comments Mother (Age 86) Other 1 Other 2 Other 3 Other 4 Social History Tobacco Use Types Packs/Day Years Used Date Smoking Tobacco: Former Smokeless Tobacco: Never Tobacco Cessation:Counseling Given: Not Answered AUDIT-C Answer Date Recorded Q1: How often do you have a drink containing alc ohol? Never 07/23/2021 Average Number of Drinks Not on file 021 Q3: How often do you have si x or more drinks on one occasion? Never 07/23/2021 Comments Unknown Sex and Gender Information Value Date Recorded Sex Assigned at Not on file Legal Sex Female 7:26 PM KITCHEN MANAGER Gender Identity Not on file Sexual Orientation Not on file Obstetrics History Last Filed Vital Signs Vital Sign Reading Time Taken Comments Blood Pressure 134/70 07/26/2024 10:55 AM KITCHEN MANAGER Pulse 57 07/26/2024 10:55 AM KITCHEN MANAGER Temperature 36.8 C (98.2 F) 03/24/2023 12:53 PM CDT Respiratory Rate 18 03/24/2023 12:53 PM CDT Oxygen Saturation 94% 07/26/2024 10:55 AM KITCHEN MANAGER Inhaled Oxygen Concentration - - Weight 78 kg (172 lb) 07/26/2024 10:55 AM KITCHEN MANAGER Height 165.1 cm (5' 5 ) 07/26/2024 10:55 AM KITCHEN MANAGER Body Mass Index 28.62 07/26/2024 10:55 AM KITCHEN MANAGER Plan of Treatment Health Maintenance Due Date Last Done Comments Depression Screening 1942 Pneumococcal vaccine 65+ (1 of 2 - PCV) 1948 Hepatitis B Screening 1960 Well Visit 65+ 11/08/2007 Fall Risk Assessment 12/08/2021 12/08/2020, 12/14/19 20 Influenza Vaccine (#1) 2024 Osteoporosis Screening-Bone Density Scan 12/09/2024 12/09/2022, 12/09/2022, 12/22/2020 DTaP/Tdap/Td Vaccine (2 - Td or Tdap) 01/23/2027 Zoster Vaccine Completed 08/20/2019, 06/21/2019 Insurance MEDICARE BCBS FEDERAL MEDICARE [facility] Care Teams Collection Systems Technician Relationship Specialty Start Date End Date Sarah Lozano PA [facility] [place] [phone] PCP - General Family Practice 04/25/23
--- OUTSIDE RECORDS SUMMARY | 2024-09-26 12:18 | XMS_ITS | Referral Summary ---
Author Organization [facility] Address [address] [place] [address] Care Team Providers Care Oxide Furnace Tender Name Role Phone Sarah Lozano Primary Care Provider [phone] Encounters Date Type Department Care Team Description 07/26/2024 11:15 AM FURNITURE FINISHER APPRENTICE Office Visit [facility] [address] [place] [address] Rolando Martinez MD Essential hypertension (Primary Dx); Hyperlipidemia LDL goal <100; Palpitations; JESI (obstructive sleep apnea); Centrilobular emphysema (HCC) from Last 3 Months Allergies No known active allergies Medications cholecalciferol [...] therapy. Assessment & Plan (09/23/2022 12:06 PM FURNITURE FINISHER APPRENTICE): Patient will continue with cognitive behavior therapy. Assessment & Plan (07/22/2022 10:36 AM FURNITURE FINISHER APPRENTICE): Patient will continue with cognitive behavior therapy. I did instruct the patient that naps may be interfering with her nighttime sleep habits. Assessment & Plan (07/23/2021 1:24 PM FURNITURE FINISHER APPRENTICE): The patient does have difficulty initiating and maintaining sleep. I did recommend sleep restriction, cognitive behavioral therapy and good sleep hygiene. I did give her the 2 brochures that are published by the [place] [employer] regarding understanding insomnia [...] enrolled in the pulmonary rehab program and [facility] at this time because she is still working. She will follow-up with me in 3 months. Assessment & Plan (09/23/2022 12:36 PM FURNITURE FINISHER APPRENTICE): Due to the increase of shortness of [...] like to participate in pulmonary rehab at [facility]. I will send an order over. Assessment & Plan (07/22/2022 10:36 AM FURNITURE FINISHER APPRENTICE): Patient will continue with albuterol on a p.r.n. basis and up to 4 times a day as needed for symptom control. I have ordered a full PFT and 6 minute walk test Assessment & Plan (07/23/2021 1:24 PM FURNITURE FINISHER APPRENTICE): The patient has a history of stage [...] [facility]. Assessment & Plan (09/23/2022 12:05 PM FURNITURE FINISHER APPRENTICE): Patient will continue CPAP therapy at 12 cm water pressure. Denied need for supplies. DME [facility] Assessment & Plan (07/22/2022 10:35 AM FURNITURE FINISHER APPRENTICE): Patient will continue CPAP therapy at 12 cm water pressure. Denied need for supplies. DME [facility] Assessment & Plan (07/23/2021 1:22 PM FURNITURE FINISHER APPRENTICE): The patient continues to benefit from the CPAP unit 12 cm water pressure. Her DME supplier is [facility]. She has registered for a new CPAP unit through [employer]. She will follow-up with me in 1 year. Fatigue 11/18/2014 Overview (11/15/2016): Fatigue Resolved Problems Problem Noted Date Diagnosed Date Resolved Date Snoring 11/18/2014 07/22/2022 Overview (11/15/2016): Snores Social History Tobacco Use Types Packs/Day Years [...] on file Legal Sex Female 7:26 PM FURNITURE FINISHER APPRENTICE Gender Identity Not on file Sexual Orientation Not on file Last Filed Vital Signs Vital Sign Reading Time Taken Comments Blood Pressure 134/70 07/26/2024 10:55 AM FURNITURE FINISHER APPRENTICE Pulse 57 07/26/2024 10:55 AM FURNITURE FINISHER APPRENTICE Temperature 36.8 C (98.2 F) 03/24/2023 12:53 PM CDT Respiratory Rate 18 03/24/2023 12:53 PM CDT Oxygen Saturation 94% 07/26/2024 10:55 AM FURNITURE FINISHER APPRENTICE Inhaled Oxygen Concentration - - Weight 78 kg (172 lb) 07/26/2024 10:55 AM FURNITURE FINISHER APPRENTICE Height 165.1 cm (5' 5 ) 07/26/2024 10:55 AM FURNITURE FINISHER APPRENTICE Body Mass Index 28.62 07/26/2024 10:55 AM FURNITURE FINISHER APPRENTICE Plan of Treatment Not on file Insurance MEDICARE [facility] FEDERAL MEDICARE [facility] Care Teams Oxide Furnace Tender Relationship Specialty Start Date End Date Sarah Lozano PA [address] [place] [id number] PCP - General Family Practice 04/25/23
--- OUTSIDE RECORDS SUMMARY | 2024-09-26 12:18 | XMS_ITS | Encounter Summary ---
Author Organization [facility] Address [address] [place] [address] Care Team Providers Care Clinical Trials Manager Name Role Phone Duke Brown MD Primary Care Provider [phone] Sarah Lozano PA-C Primary Care Provider [phone] Reason for Referral * Medication (Routine) - Closed Specialty Diagnoses / Procedures Referred By Contcheryl t Referred To Contact INFUSION THERAPY Diagnoses Senile osteoporosis Procedures ZOLEDRONIC ACID 1 MG reclast infusion [facility] [address] [place] [address] Phone: tel: Referral ID Status Reason Start Date Expiration Date V isits Requested Visits Authorized [id number] Closed Specialty Services 03/06/2021 04/06/2022 1 1 Encounter Details Date Type Department Care Team (Late st Contact Info) Description 03/06/2021 Therapy Plan [facility] [address] [place] [address] Indra Narvaez MD [address] [place] [address] Social History Tobacco Use Types Packs/Day Years [...] of Binge Drinking Not on file 07/11 Comments No Sex and Gender Information Value Date Recorded Sex Assigned at Female 10/11/2019 10:42 AM TILE CONDUIT LAYER Legal Sex Female 8:12 PM CDT Gender Identity Female 10/11/2019 10:42 AM TILE CONDUIT LAYER Sexual Orientation Straight 10/11/2019 10 :42 AM TILE CONDUIT LAYER 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 No / Unsure 03/09/2021 1:51 PM CDT documented as of this encounter Plan of Treatment Upcoming Encounters Date Type Department Care Team (Late st Contact Info) Description 12/20/2024 10:00 AM CDT Appointment [facility] Imaging [address] [place] [address] Sarah Lozano PA-C [address] [place] [address] Scheduled Referrals Name Type Priority Associated Diagnoses Orde r Schedule Ambulatory referral to Infusion Therapy Referral Routine Senile osteoporosis Ordered: 03/06/2021 documented as of this encounter Visit Diagnoses Diagnosis Senile osteoporosis- Primary documented in this encounter Care Teams Clinical Trials Manager Relationship Specialty Start Date End Date Duke Brown MD [address] [place] [id number] PCP - General INTERNAL MEDICINE 03/16/19 03/24/22 Sarah Lozano PA-C [address] [place] [phone] PCP - General PHYSICIAN CUT OFF SAW SET UP OPERATOR 03/25/22 documented as of this encounter
--- OUTSIDE RECORDS SUMMARY | 2024-09-26 12:18 | XMS_ITS | Encounter Summary ---
Author Organization [employer] Address [address] [place] [address] Care Team Providers Care Mastic Floor Layer Name Role Phone Duke Brown MD Primary Care Provider [phone] Encounter Details Date Type Department Care Team (Latest Contact Info) Description 07/30/2006 Inpatient Historical [facility] Monik Mann MD NO ADDRESS ON FILE Leiomyoma of Uterus, Unspecified (Primary Dx) Social History Tobacco Use Types Packs/Day Years Used Date Smoking Tobacco: Never Assessed Comments Unknown Sex and Gender Information Value Date Recorded Sex Assigned at Not on file Legal Sex Female 5:02 AM UPHOLSTERY TRIMMER Gender Identity Not on file Sexual Orientation Not on file documented as of this encounter Plan of Treatment Not on file documented as of this encounter Procedures Procedure Name Priority Date/Time Associated Diagnosis Comments CBC WITH DIFFERENTIAL Routine 07/31/2006 9:50 AM UPHOLSTERY TRIMMER CBC WITH DIFFERENTIAL Routine 07/31/2006 9:50 AM UPHOLSTERY TRIMMER MAGNESIUM LEVEL Routine 07/31/2006 9:50 AM UPHOLSTERY TRIMMER BASIC METABOLIC PANEL Routine 07/31/2006 9:50 AM UPHOLSTERY TRIMMER CBC WITH DIFFERENTIAL Routine 07/18/2006 11:51 AM UPHOLSTERY TRIMMER CBC WITH DIFFERENTIAL Routine 07/18/2006 11:51 AM UPHOLSTERY TRIMMER URINALYSIS W/REFLEX MICROSCOPIC Routine 07/18/2006 11:51 AM UPHOLSTERY TRIMMER PTT Routine 07/18/2006 11:51 AM UPHOLSTERY TRIMMER PROTIME-INR Routine 07/18/2006 11:51 AM UPHOLSTERY TRIMMER COMPREHENSIVE METABOLIC PANEL Routine 07/18/2006 11:51 AM UPHOLSTERY TRIMMER documented in this encounter Results * (ABNORMAL) CBC WITH DIFFERENTIAL (07/31/2006 9:50 AM UPHOLSTERY TRIMMER) NEUTROPHILS 80(H) 45 - 70 % INTERFAC E SYSTEM LYMPHOCYTES 16 16 - 45 % INTERFAC E SYSTEM MONOCYTES 4 3 - 13 % INTERFACE SYSTEM EOSINOPHILS 0 0 - 7 % INTERFAC E SYSTEM BASOPHILS 0 0 - 2 % INTERFACE SYSTEM NEUTROPHIL ABSOLUTE 7.55(H) 1.90 - 7.00 K/uL INTERFACE SYSTEM LYMPHOCYTE ABSOLUTE 1.47 0.70 - 4.50 K/uL INTERFACE SYSTEM MONOCYTE ABSOLUTE 0.37 0.10 - 1.30 K/uL INTERFACE SYSTEM EOSINOPHIL ABSOLUTE 0.00 0.00 - 0.70 K/uL INTERFACE SYSTEM BASOPHILS ABSOLUTE 0.00 0.00 - 0.20 K/uL INTERFACE SYSTEM 07/31/2006 9:50 AM UPHOLSTERY TRIMMER us Monik Mann MD HEMATOLOGY ORDERABLES Final R esult INTERFACE SYSTEM Refer to clinic/hospital department * (ABNORMAL) CBC WITH DIFFERENTIAL (07/31/2006 9:50 AM UPHOLSTERY TRIMMER) WBC 9.4 4.0 - 9.8 K/uL INTERFACE SYSTEM RBC 3.72(L) 3.90 - 4.90 M/uL INTERFACE SYSTEM HEMOGLOBIN 10.9(L) 11.8 - 14.8 g/dL INTERFACE SYSTEM HEMATOCRIT 32.6(L) 35.5 - 44.0 % INTERFACE SYSTEM MCV 87.6 82.0 - 99.0 fL INTERFACE SYSTEM MCH 29.3 27.2 - 32.6 pg INTERFACE SYSTEM MCHC 33.4 31.5 - 35.5 % INTERFACE SYSTEM RDW 13.6 11.5 - 14.5 % INTERFACE SYSTEM RDW-STDEV 44.1 37.1 - 48.7 fL INTERFACE SYSTEM PLATELETS 271 140 - 350 K/uL INTERFACE SYSTEM MPV 9.7 9.3 - 12.4 fL INTERFACE SYSTEM 07/31/2006 9:50 AM UPHOLSTERY TRIMMER us Monik Mann MD HEMATOLOGY ORDERABLES Final R esult Performing Organization Address [facility] Phone Number INTERFACE SYSTEM Refer to clinic/hospital department * MAGNESIUM LEVEL (07/31/2006 9:50 AM UPHOLSTERY TRIMMER) MAGNESIUM 1.9 1.5 - 2.5 mg/dL INTERFACE SYSTEM 07/31/2006 9:50 AM UPHOLSTERY TRIMMER us Monik Mann MD CHEMISTRY ORDERABLES Final Re sult Performing Organization Address [facility] Phone Number INTERFACE SYSTEM Refer to clinic/hospital department * (ABNORMAL) BASIC METABOLIC PANEL (07/31/2006 9:50 AM UPHOLSTERY TRIMMER) GLUCOSE 146(H) 65 - 99 mg/dL INTERFACE SYSTEM CREATININE 0.69 0.51 - 0.95 mg/dL INTERFACE SYSTEM CALCIUM 8.2(L) 8.4 - 10.2 mg/dL INTERFACE SYSTEM BUN 11 6 - 20 mg/dL INTERFACE SYSTEM SODIUM 138 135 - 145 mmol/L INTERFACE SYSTEM POTASSIUM 3.4(L) 3.5 - 4.9 mmol/L INTERFACE SYSTEM CHLORIDE 104 96 - 108 mmol/L INTERFACE SYSTEM CO2 28 22 - 30 mmol/L INTERFACE SYSTEM GFR, >60 >=60 mL/min/1. 7 sq meter INTERFACE SYSTEM GFR >60 >=60 mL/min/1. 7 sq meter INTERFACE SYSTEM Comment: Estimated GFR rate interpretative information for both Americans and non- Americans is available on the [facility] Intranet at: [email or web address] Select: Lab Policies and Procedures Select: Reference Ranges - GFR 07/31/2006 9:50 AM UPHOLSTERY TRIMMER Result Fox Mann MD CHEMISTRY ORDERABLES Final Re sult Performing Organization Address [facility] Phone Number INTERFACE SYSTEM Refer to clinic/hospital department * URINALYSIS (07/18/2006 11:51 AM UPHOLSTERY TRIMMER) COLOR UA Pale Yellow INTERFAC E SYSTEM CLARITY UA Clear Clear INTERFACE SYSTEM SPECIFIC GRAVITY UA 1.009 1.001 - 1.035 INTERFACE SYSTEM PH UA 6.5 5.0 - 8.0 INTERFACE SYSTEM LEUKOCYTE ESTERASE UA Negative Negative INTERFACE SYSTEM NITRITE UA Negative Negative INTERFACE SYSTEM PROTEIN UA Negative Negative INTERFACE SYSTEM GLUCOSE UA Negative Negative INTERFACE SYSTEM KETONES UA Negative Negative INTERFACE SYSTEM UROBILINOGEN UA <1 <=1 mg/dL INTE RFACE SYSTEM BILIRUBIN UA Negative Negative INTERFA CE SYSTEM BLOOD UA Negative Negative INTERFACE SYSTEM 07/18/2006 11:5 1 AM UPHOLSTERY TRIMMER us Monik Mann MD URINE ORDERABLES Final Result Performing Organization Address [facility] Phone Number INTERFACE SYSTEM Refer to clinic/hospital department * CBC WITH DIFFERENTIAL (07/18/2006 11:51 AM UPHOLSTERY TRIMMER) NEUTROPHILS 69 45 - 70 % INTERFAC E SYSTEM LYMPHOCYTES 23 16 - 45 % INTERFAC E SYSTEM MONOCYTES 6 3 - 13 % INTERFACE SYSTEM EOSINOPHILS 2 0 - 7 % INTERFAC E SYSTEM BASOPHILS 1 0 - 2 % INTERFACE SYSTEM NEUTROPHIL ABSOLUTE 6.95 1.90 - 7.00 K/uL INTERFACE SYSTEM LYMPHOCYTE ABSOLUTE 2.33 0.70 - 4.50 K/uL INTERFACE SYSTEM MONOCYTE ABSOLUTE 0.58 0.10 - 1.30 K/uL INTERFACE SYSTEM EOSINOPHIL ABSOLUTE 0.16 0.00 - 0.70 K/uL INTERFACE SYSTEM BASOPHILS ABSOLUTE 0.05 0.00 - 0.20 K/uL INTERFACE SYSTEM 07/18/2006 11:5 1 AM UPHOLSTERY TRIMMER us Monik Mann MD HEMATOLOGY ORDERABLES Final R esult Performing Organization Address [facility] Phone Number INTERFACE SYSTEM Refer to clinic/hospital department * (ABNORMAL) CBC WITH DIFFERENTIAL (07/18/2006 11:51 AM UPHOLSTERY TRIMMER) WBC 10.1(H) 4.0 - 9.8 K/uL INTERFACE SYSTEM RBC 5.23(H) 3.90 - 4.90 M/uL INTERFACE SYSTEM HEMOGLOBIN 15.5(H) 11.8 - 14.8 g/dL INTERFACE SYSTEM HEMATOCRIT 45.8(H) 35.5 - 44.0 % INTERFACE SYSTEM MCV 87.6 82.0 - 99.0 fL INTERFACE SYSTEM MCH 29.6 27.2 - 32.6 pg INTERFACE SYSTEM MCHC 33.8 31.5 - 35.5 % INTERFACE SYSTEM RDW 13.6 11.5 - 14.5 % INTERFACE SYSTEM RDW-STDEV 43.9 37.1 - 48.7 fL INTERFACE SYSTEM PLATELETS 376(H) 140 - 350 K/uL INTERFACE SYSTEM MPV 9.9 9.3 - 12.4 fL INTERFACE SYSTEM 07/18/2006 11:5 1 AM UPHOLSTERY TRIMMER Monik Mann MD HEMATOLOGY ORDERABLES Final R ult Performing Organization Address [facility] Phone Number INTERFACE SYSTEM Refer to clinic/hospital department * PTT (07/18/2006 11:51 AM UPHOLSTERY TRIMMER) PTT 26.0 24.4 - 36.4 Seconds INTERFACE SYSTEM Comment: PTT Therapeutic Range: Heparin Level PTT (seconds) <0.10 units/mL <53 0.10 - 0.30 units/mL 53 - 67 0.30 - 0.70 units/mL* 67 - 95* 0.70 - 1.00 units/mL 95 - 116 *corresponds to therapeutic range for unfractionated heparin 07/18/2006 11:5 1 AM UPHOLSTERY TRIMMER us Monik Mann MD HEMATOLOGY ORDERABLES Final R esult Performing Organization Address [facility] Phone Number INTERFACE SYSTEM Refer to clinic/hospital department * PROTIME-INR (07/18/2006 11:51 AM UPHOLSTERY TRIMMER) PROTIME 12.7 12.7 - 15.1 Seconds INTERFACE SYSTEM INR 0.9 0.9 - 1.1 INTERFACE SYSTEM Comment: INR Therapeutic Range: Adult: 2.0 - 3.0 for pulmonary embolism or prophylaxis against venous thrombosis or systemic embolization. 2.0 - 3.0 for patients with tissue heart valves. 2.5 - 3.5 for patients with mechanical heart valves or post MS. Pediatric (12 years and under): 1.5 - 3.0 Although the target range in children is not well established , INR values of 1.5 - 3.0 are recommended for most patients. Higher values have been used in children with prosthetic cardiac valves and hereditary clotting disorders. (<3 days) therapeutic ranges have not been established. 07/18/2006 11:5 1 AM UPHOLSTERY TRIMMER us Monik Mann MD HEMATOLOGY ORDERABLES Final R esult INTERFACE SYSTEM Refer to clinic/hospital department * COMPREHENSIVE METABOLIC PANEL (07/18/2006 11:51 AM UPHOLSTERY TRIMMER) GLUCOSE 97 65 - 99 mg/dL INTERFACE SYSTEM CREATININE 0.79 0.51 - 0.95 mg/dL INTERFACE SYSTEM Comment:Note: Effective 06/11 New Methodology and Reference Ranges CALCIUM 9.2 8.4 - 10.2 mg/dL INTERFACE SYSTEM ALKALINE PHOSPHATASE 81 35 - 104 U/L INTERFACE SYSTEM AST 17 12 - 32 U/L INTERFACE SYSTEM ALT 17 0 - 31 U/L INTERFACE SYSTEM TOTAL PROTEIN 7.0 6.3 - 8.6 g/dL INTERFACE SYSTEM ALBUMIN 4.1 3.4 - 4.8 g/dL INTERFACE SYSTEM BILIRUBIN TOTAL 0.4 0.2 - 1.0 mg/dL INTERFACE SYSTEM BUN 18 6 - 20 mg/dL INTERFACE SYSTEM SODIUM 139 135 - 145 mmol/L INTERFACE SYSTEM POTASSIUM 4.3 3.5 - 4.9 mmol/L INTERFACE SYSTEM CHLORIDE 104 96 - 108 mmol/L INTERFACE SYSTEM CO2 30 22 - 30 mmol/L INTERFACE SYSTEM GFR, >60 >=60 mL/min/1.7 sq meter INTERFACE SYSTEM GFR >60 >=60 mL/min/1.7 sq meter INTERFACE SYSTEM Comment: Estimated GFR rate interpretative information for both Americans and non- Americans is available on the [facility] Intranet at: [email or web address] Select: Lab Policies and Procedures Select: Reference Ranges - GFR 07/18/2006 11:5 1 AM UPHOLSTERY TRIMMER us Monik Mann MD CHEMISTRY ORDERABLES Final Re sult INTERFACE SYSTEM Refer to clinic/hospital department documented in this encounter Visit Diagnoses Diagnosis Leiomyoma of uterus, unspecified- Primary documented in this encounter Care Teams Mastic Floor Layer Relationship Specialty Start Date End Date Duke Brown MD [address] [place] [id number] PCP - General 07/30/06 documented as of this encounter
--- OUTSIDE RECORDS SUMMARY | 2024-09-26 12:18 | XMS_ITS | Patient Health Summary ---
Author Organization [facility] Address [address] [place] [address] Care Team Providers Care Snow Shoveler Name Role Phone [facility] - Primar y Care Provider Note from [facility],non-owned Affiliates and Associated Physician Practices is amultiple site organization consisting of ambulatory clinics and hospital sitesin [place], [place], [place] and [place]. This disclosure is being madepursuant to the Care Everywhere program and may not contain all information available regarding this patient. Last updated 18.[facility] Social History Tobacco Use Types Packs/Day Years Used Date Smoking Tobacco: Never Assessed Sex and Gender Information Value Date Recorded Sex Assigned at Not on file Gender Identity Not on file Sexual Orientation Not on file Procedures * MAMMO BILAT SCREENING W DASHAWN(Performed 07/16/2024) Performed for Encounter for screening mammogram for malignant neoplasm of breast * DERMATOPATHOLOGY(Performed 05/19/2023) * MAMMO BILAT SCREENING W DASHAWN(Performed 04/08/2022) Performed for Breast cancer screening by mammogram * MAMMO BILAT SCREENING(Performed 03/16/2021) Performed for Visit for screening mammogram * MAMMO BILAT SCREENING(Performed 08/17/2018) Performed for Visit for screening mammogram * MAMMO BILAT SCREENING(Performed 08/15/2017) * MAMMO BILAT SCREENING(Performed 07/22/2016) * MAMMO BILAT SCREENING(Performed 07/17/2015) * MAMMO BILAT SCREENING(Performed 07/19/2014) * MAMMO BILAT SCREENING(Performed 07/20/2013) * MAMMO BILAT SCREENING(Performed 07/16/2012) Results * Mammo Bilat Screening W Dashawn (07/16/2024 11:43 AM SENIOR RESEARCH CONSULTANT) Only the most recent of2 resultswithin the time period is included. Anatomical Region Laterality Modality Breast Bilateral Mammography 07/16/2024 11:5 0 AM SENIOR RESEARCH CONSULTANT Impressions 07/16/2024 11:53 AM SENIOR RESEARCH CONSULTANT IMPRESSION: No mammographic evidence of malignancy. RECOMMENDATION: Screening mammography in one year, pending no interval breast concerns. Patient will receive the examination results by lay letter. OVERALL ASSESSMENT: BI-RADS CATEGORY 1: NEGATIVE. > Interpreting Provider: Yudi Post MD, FACR on 07/16/2024 11:53 AM Narrative 07/16/2024 11:53 AM SENIOR RESEARCH CONSULTANT EXAMINATIONS: BILATERAL DIGITAL SCREENING MAMMOGRAM AND BILATERAL BREAST TOMOSYNTHESIS LOCATION: [facility] EXAM DATE: 07/16/2024 HISTORY: Screening. No family [...] from the prior. Provider Unknown MAMMO ORDERABLES * DERMATOPATHOLOGY (05/19/2023 12:00 AM CDT) Case Report Dermatopathology Report Case: [id number] Authorizing Provider: Corbin Delgado MD Collected: 05/19/2023 12:00 AM Ordering Location: [facility] DermPath Lab Received: 05/20/2023 08:38 AM Pathologist: Janice Sheets MD Specimen: Skin, right lower leg 5:03 PM T DERMATOPATHOLOGY LABORATORY Final Diagnosis Specimen A. SKIN, right lower leg: VERRUCA VULGARIS, SUPERFICIAL PORTIONS OF (B07.8) 5:03 PM T DERMATOPATHOLOGY LABORATORY Clinical History SCCA vs ISK Path# [id number] 5:03 PM CDT DERMATOPATHOLOGY LABORATORY Gross Description [...] characteristic determined by the Dermatopathology Laboratory at [facility], directed by Dr. Starla Sheets. These tests need not be, and therefore are not, approved by the [place] Food and Drug Administration. The tests are used for clinical purposes. Billing Codes Specimen Charges Stain Charges 30484 1 5:03 PM CDT DERMATOPATHOLOGY LABORATORY Embedded Images 5:03 PM CDT DERMATOPATHOLOGY LABORATORY Pathology/Cytolog y TISSUE SPECIMEN FROM SKIN / Unknown 05/19/2023 05/20/2023 8:38 AM CDT Corbin Delgado MD LAB - PATHOLOGY/CYTO LOGY ORDERABLES DERMATOPATHOLOGY LABORATORY [facility] - Department of Dermatology [address], [address] [phone] * MAMMO BILAT SCREENING (03/16/2021 10:25 AM CDT) Only the most recent of8 resultswithin the time period is included. Anatomical Region Laterality Modality Breast Bilateral Mammography 03/16/2021 11:1 0 AM CDT Impressions 03/16/2021 2:14 PM CDT IMPRESSION: No mammographic evidence of malignancy. No significant interval change. RECOMMENDATION: Screening mammography in one year, pending no interval breast concerns. Patient will be notified of the results by lay letter. OVERALL ASSESSMENT: BI-RADS CATEGORY 1: NEGATIVE. Report dictated by Slim Bruce MD (residential support worker). I, Dr. ERIKA CORREIA have personally reviewed and interpreted this examination/study. This report was electronically signed by ERIKA CORREIA on 03/16/2021 2:14 PM . Narrative 03/16/2021 2:14 PM CDT EXAMINATION: DIGITAL MAMMO BILAT SCREENING WITH TOMOSYNTHESIS AND WITH CAD DATE OF EXAM: 03/16/2021 HISTORY: Screening. Prior vaccination for Covid with the last those given on 10/17/2020 on the left side. RISK ASSESSMENT CALCULATION: Not performed given patient's age. COMPARISON: Screening mammograms from [facility] dated 08/17/2018, 08/15/2017, and 07/22/2016 TECHNIQUE: Bilateral synthetic 2-D (C-view) digital mammogram images and bilateral digital breast tomosynthesis (3D) were obtained and reviewed in the craniocaudal and mediolateral oblique projections. A total of 4 images were obtained. Mole markers placed on both breasts. Computer-aided detection (CAD) was utilized. BREAST PARENCHYMAL COMPOSITION: Category A: The breasts are almost entirely fatty. FINDINGS: There are no suspicious findings or evidence of malignancy on mammography. Multiple new small lymph nodes in the left axillary region are most likely related to Covid vaccination. There is no other significant change from the prior. Provider Unknown MAMMO ORDERABLES Care Teams Snow Shoveler Relationship Specialty Start Date End Date [facility] - [address] [place] [id number] [facility] - General 07/16/24
--- OUTSIDE RECORDS SUMMARY | 2024-09-26 12:19 | XMS_ITS | Continuity of Care Document ---
Author Organization [facility] Address [address] [place] [address] Phone Care Team Providers Care Software Developer Mid Level Name Role Phone Stone Martin MD Unavailable [...] 40 MG inj Xray Copy [facility] Drain/inject major jointor bursa 2010 Depo Medrol Methylprednisolone 40 MG inj X-ray exam of knee, 1 or2 views 011 X-ray exam of both knees, standing Advance Directives Directive Yes / No Effective Date File Name No Information Encounters Encounter Description Practice Location Reason(s) For Visit Diagnoses Date Provider Providers Copied on Encounter [facility], [address], [place], [place], [id number], [place] tel:[phone] [facility] No Information 3 Veronica Ritter. [address], [address], [place], [place], [id number], [place]. tel:[phone] [email or web address], [address] [place] [address], [place], [place], [id number], [place] tel:[phone] [email or web address] No Information 3 No Information [facility], [address] [place] [address], [id number], [place] tel:[phone] [email or web address] left knee pain (chief complaint) PAIN IN LIMBLOC PRIM OSTEOART-L/L EGSCIATICA 3 No Information [facility], [address] [place] [address], [place], [place], [id number], [place] tel:[phone] [email or web address] No Information 1 Administrative Provider. [address] [place] [address], [address], [place], [place], [id number], [place]. tel:[phone] Office/outpa tient visit,[facility], [address] [place] [address], [place], [place], [id number], [place] tel:[phone] [email or web address] JOINT PAIN-L/LEGLO C PRIM OSTEOART-L/L EG 1 No Information Family History Family Member Type Diagnosis Age At Onset No Information Immunizations Vaccine Date Status Comments pneumo (2 yrs or older) (PPV23) administe red Source: New Immunization Record Flu (split) (3 yrs or older) administered Source: New Immunization Record Payers Payer name Insurance type Covered alliance party ID Authoriza tion(s) [place] [id number] [facility] Cross Blue [employer] [facility] [id number] Social History Type Description Quantity Date Captured [...]
[2024-09-26 12:56] VITALS: BP 154/62; PULSE 62; RESP 18; TEMP 36.4; O2SAT 98
--- NOTE | 2024-09-26 13:33 | ED_ITS ---
HPI - Eye Problem General Chief complaint: Eye Problems Stated complaint: RT Eye Problem Source: patient Mode of arrival: ambulatory Limitations: no limitations History of Present Illness HPI Narrative: 83-year-old female presents to [facility] with complaints of area of redness and pain to her right lower eyelid for the past 2 days. Patient reports that she also has noticed some swelling under her right eye for the past few days. Patient has been using [id number] eye ointment and eye drops with little relief. Patient does were glasses. Patient denies injury to her eye. Patient reports that she is scheduled for a Mohs procedure tomorrow to an area on the left side of her face. chief complaint: eye pain Onset (ago): day(s) (2) Onset description: gradual Location: right eye Eye Symptoms: pain Associated symptoms: none Treatments Prior to Arrival: OTC eye drops Related Data Home Medications ?Medication ?Instructions ?Recorded ?Confirmed ?Last Taken ?Type benazepril 40 mg tablet 40 mg PO DAILY 03/11/22 09/08/24 Unknown History cholecalciferol (vitamin D3) 25 25 mcg PO DAILY 03/11/22 09/08/24 Unknown History mcg (1,000 unit) capsule rosuvastatin 20 mg tablet 20 mg PO DAILY 03/11/22 09/08/24 Unknown History ncnxgplgjvt-fdn-jxvxbrqil-vitC 2 cap PO BID 10/21/22 09/08/24 Unknown History capsule (Glucosamine Complex-MSM capsule) acetaminophen 650 mg 650 mg PO Q12H 06/21/24 09/08/24 Unknown History tablet,extended release (Tylenol 8 Hour) Allergies Allergy/AdvReac Type Severity Reaction Status Date / Time azithromycin (From Zithromax) AdvReac Mild GI upset Verified 09/26/24 13:13 Review of Systems Constitutional: Constitutional: Denies chills, Denies fatigue, Denies fever(s) and Denies weakness Eyes: Comments: Area of redness and swelling to right lower eyelid and swelling under right eye ENT: Denies dizziness, Denies epistaxis, Denies nasal congestion and Denies s ore throat Cardiovascular: Cardiovascular: Denies chest pain Respiratory: Respiratory: Denies cough, Denies dyspnea and Denies wheezing Gastrointestinal: Gastrointestinal: Denies diarrhea, Denies nausea and Denies vomiting Neurologic: Denies dizziness, Denies syncope, Denies headache(s) and Denies focal weakness PMFSH Past Medical History Medical History Hyperglycemia History of tobacco abuse Renal insufficiency Anxiety JESI on CPAP COPD (chronic obstructive pulmonary disease) Osteoporosis Hypertension Arthritis Surgical History Surgical History History of hammer toe correction L 2nd toe-2006 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 Smoking status: Former smoker Tobacco type: cigarettes Second hand tobacco smoke exposure: No Smoking end date: 08/11/96 Alcohol intake: never Substance use: never Substance use type: does not use Do You Feel Safe in your Home?: Yes Lack of Transportation: No Lack of Food: Never True Current Housing: I Have Housing Concerned About Future Housing: No Difficulty Paying Gas/Electric Bills: No Difficulty Paying for Meds: No Currently Unemployed: No Education: Associate Degree Difficulty w/ Childcare or Family Care: No Living arrangements: alone Occupation/Education: retired Gender identity (if verbalized by the patient): Female Sexual Orientation (if Verbalized by the Patient): Straight or Heterosexual Spiritual care concerns: No Comments At time of signature, I agree with nursing past medical, surgical, social and family history. There is no relevant family history pertinent to the presenting complaint. Exam Const: General: healthy appearing and no acute distress Nutritional Appearance: well nourished Orientation/consciousness: patient oriented x3 Limitations: no limitations HENMT: Head: normal to inspection Eyes: Conjunctivae: conjunctivae normal Pupils: Equal, round and reactive pupils present Direct Ophthalmoscopy: no photophobia Other: Area of redness and swelling noted to right lower eyelid representing a stye. There is mild amount of swelling noted to area under right eye. Conjunctiva is normal. There is no drainage noted. Neck: Neck: normal visual inspection Resp: Effort & Inspection: normal respiratory effort Auscultation: clear to auscultation bilaterally, no crackles, no rales and no rhonchi Cardio: Rate: regular rate Rhythm: regular rhythm Heart sounds: no murmurs Skin: General skin exam: normal color Rashes: no rashes Neuro: General: patient oriented x3 Speech: normal speech Gait exam (Neuro): Normal gait present Psych: Affect: normal affect Attitude: cooperative Course Course Level of Care: Express Care Visit Vital Signs Vital signs: Vital Signs Temperature 36.4 C 09/26/24 12:56 Pulse Rate 62 09/26/24 12:56 Respiratory Rate 18 09/26/24 12:56 Blood Pressure 154/62 H 09/26/24 12:56 Pulse Oximetry 98 09/26/24 12:56 Oxygen Delivery Room Air 09/26/24 12:56 Temperature 36.4 C 09/26/24 12:56 Pulse Rate 62 09/26/24 12:56 Respiratory Rate 18 09/26/24 12:56 Blood Pressure 154/62 H 09/26/24 12:56 Pulse Oximetry 98 09/26/24 12:56 Oxygen Delivery Room Air 09/26/24 12:56 MDM - Eye Problem MDM Narrative Medical decision making narrative: Concern for bacterial and allergic component due to stye and localized swelling and dry. Educated patient follow-up with eye doctor symptoms are improved. Educated patient to take Claritin daily and to use prescription eye ointment. Educated patient follow-up with primary care provider to have blood pressure evaluated. Educated patient proceed to the emergency room if symptoms worsen. Differential Diagnosis Differential diagnosis: Likely corneal abrasion and conjunctivitis Critical Care Time Critical Care Time Critical Care Time: No Discharge Plan Discharge Clinical Impression: Hordeolum externum of right lower eyelid Patient Disposition: Home, Self-Care Condition: Stable Instructions: Stye (ED) Additional Instructions: Apply warm compress to area of stye Apply cool compress area of swelling Take Claritin daily Use antibiotic eye ointment as prescribed Follow-up with eye doctor if symptoms not improved Proceed to the emergency room if symptoms worsen follow-up with primary care provider to have blood pressure evaluated Patient Language: Kiswahili Prescriptions: New loratadine [Claritin] 10 mg tablet 10 mg PO DAILY Qty: 10 0RF erythromycin 5 mg/gram (0.5 %) ointment 1 applic RIGHT EYE TID Qty: 3.5 0RF No Action Glucosamine Complex-MSM Capsule 2 cap PO BID tramadol 50 mg tablet See Rx Instructions PO Q6H PRN (Reason: pain) Qty: 120 0RF Rx Instructions: 1-2 tabs orally every 6 hours PRN; benazepril 40 mg tablet 40 mg PO DAILY rosuvastatin 20 mg tablet 20 mg PO DAILY cholecalciferol (vitamin D3) 25 mcg (1,000 unit) capsule 25 mcg PO DAILY Anoro Ellipta 62.5-25 mcg/actuation blister with device 1 inh inhalation Q24H 30 Days Qty: 60 11RF Rx Instructions: Take one puff at the same time daily. acetaminophen [Tylenol 8 Hour] 650 mg tablet extended release 650 mg PO Q12H hydrocodone-acetaminophen 5-325 mg tablet 1 tablet PO Q8H PRN (Reason: pain) Qty: 30 0RF metoprolol succinate 50 mg tablet extended release 24 hr 50 mg PO DAILY Qty: 90 0RF hydrochlorothiazide 12.5 mg tablet 12.5 mg PO DAILY Qty: 90 0RF Follow-up/Referrals: Sarah Lozano PAJanetC [Primary Care Provider] -
== END 2024-09-26 13:44 | disposition home or self-care (01) ==
PROVIDERS: Emergency Provider Nurse Practitioner Family; PCP Physician Assistant Medical
DX: H00.012 Hordeolum externum right lower eyelid (principal); Z87.891 Personal history of nicotine dependence; J44.9 Chronic obstructive pulmonary disease, unspecified; I10 Essential (primary) hypertension; M81.0 Age-related osteoporosis without current pathological fracture; M19.90 Unspecified osteoarthritis, unspecified site; Z96.652 Presence of left artificial knee joint
CPT/HCPCS: 99213; G0463